=== PATIENT | male | born 1940 | race Caucasian/White ===

== ENCOUNTER 2017-09-27 10:01 | Emergency (ER) | payer MEDICARE ==
[~2017-09-27] VITALS: Ht 167.6 cm; Wt 90.7 kg
--- NOTE | 2017-09-27 10:20 | PHYS DOC ---
Adult General Chief Complaint Chief Complaint: COUGH HPI HPI Patient is a 77 year old female is presents with productive cough for one week with blood-tinged sputum for the past 2 days. Patient also reports fever, sweats , malaise. Denies chest pain and shortness of breath. 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 Denies dizziness lightheadedness headache. No vomiting, diarrhea. No other acute symptoms or complaints. Denies cardiac history. Patient is a nonsmoker. He is accompanied at bedside by his son.[] Review of Systems Review of Systems ROS as per HPI. All other systems were reviewed and found to be within normal limits, except as documented in this note. Allergies Allergies Allergies Coded Allergies Type Severity Reaction Last Updated Verified No Known Drug Allergies 09/27/17 No Physical Exam Physical Exam Constitutional: Well developed, well nourished, generally weak and fatigued appearing.[] HENT: Normocephalic, atraumatic, bilateral external ears normal, oropharynx moist, no oral exudates, nose normal. [] Eyes: PERRLA, EOMI, conjunctiva normal, no discharge. [] Neck: Normal range of motion, no tenderness. [] Cardiovascular:Heart rate regular rhythm, no murmur, negative Homans signs. [] Lungs & Thorax: Patient's nonlabored, coarse breath sounds in bases.[] Abdomen: Bowel sounds normal, soft, no tenderness, no masses, no pulsatile masses. [] Skin: Warm, dry, no erythema, no rash. [] Back: No tenderness, no CVA tenderness. [] Extremities: No tenderness, no cyanosis, no clubbing, ROM intact, no edema. [] Neurologic: Alert and oriented X 3, normal motor function, normal sensory function, no focal deficits noted. [] Psychologic: Affect normal, judgement normal, mood normal. [] Current Patient Data Vital Signs Vital Signs Date Time Temp Pulse Resp B/P (MAP) Pulse Ox O2 Delivery O2 Flow Rate FiO2 09/27/17 12:05 96 19 167/87 (113) 94 Room Air 09/27/17 10:13 98.4 98.4 Lab Values Laboratory Tests Test 09/27/17 10:25 White Blood Count 6.4 x10^3/uL (4.0-11.0) Red Blood Count 5.52 x10^6/uL (4.30-5.70) Hemoglobin 17.0 g/dL (13.0-17.5) Hematocrit 49.3 % (39.0-53.0) Mean Corpuscular Volume 89 fL (79-100) Mean Corpuscular Hemoglobin 31 pg (25-35) Mean Corpuscular Hemoglobin Concent 34 g/dL (31-37) Red Cell Distribution Width 14.0 % (11.5-14.5) Platelet Count 181 x10^3/uL (140-400) Neutrophils (%) (Auto) 63 % (31-73) Lymphocytes (%) (Auto) 29 % (24-48) Monocytes (%) (Auto) 7 % (0-9) Eosinophils (%) (Auto) 1 % (0-3) Basophils (%) (Auto) 1 % (0-3) Neutrophils # (Auto) 4.1 x10^3uL (1.8-7.7) Lymphocytes # (Auto) 1.8 x10^3/uL (1.0-4.8) Monocytes # (Auto) 0.4 x10^3/uL (0.0-1.1) Eosinophils # (Auto) 0.1 x10^3/uL (0.0-0.7) Basophils # (Auto) 0.0 x10^3/uL (0.0-0.2) Prothrombin Time 23.1 SEC (11.7-14.0) H Prothrombin Time INR 2.1 (0.8-1.1) H Sodium Level 141 mmol/L (136-145) Potassium Level 3.8 mmol/L (3.5-5.1) Chloride Level 107 mmol/L (98-107) Carbon Dioxide Level 22 mmol/L (21-32) Anion Gap 12 (6-14) Blood Urea Nitrogen 16 mg/dL (8-26) Creatinine 1.1 mg/dL (0.7-1.3) Estimated GFR (Cockcroft-Gault) 64.9 Glucose Level 121 mg/dL (70-99) H Calcium Level 8.8 mg/dL (8.5-10.1) KU-[id number]-X-Type Natriuretic Peptide 4069 pg/mL (0-449) H Laboratory Tests 09/27/17 10:25 Laboratory Tests 09/27/17 10:25 EKG EKG [EKG:] Radiology/Procedures Radiology/Procedures [Chest X-ray: No definite pulmonary infiltrate per radiology report.] Course & Med Decision Making Course & Med Decision Making Pertinent Labs and Imaging studies reviewed. (See chart for details) [Blood-tinged sputum with cough. No shortness of breath chest wall pain or fever. currently on Coumadin. Symptoms most consistent with bronchitis. Will treat with PCP follow-up. Return precautions reviewed.] Dragon Disclaimer Dragon Disclaimer This electronic medical record was generated, in whole or in part, using a voice recognition dictation system. Departure Departure Impression: Primary Impression: Cough with hemoptysis Additional Impression: Acute bronchitis Referrals: ALE RIOS MD (PCP) Scripts Albuterol Sulfate (PROAIR HFA INHALER) 8.5 Gm Hfa.aer.ad 1 PUFF INH PRN Q6HRS PRN for SHORTNESS OF BREATH, #1 INHALER 0 Refills Prov: ELODIA JUAREZ DO 09/27/17 Doxycycline Monohydrate (DOXYCYCLINE MONOHYDRATE) 100 Mg Capsule 1 CAP PO BID, #20 CAP Prov: ELODIA JUAREZ DO 09/27/17 Problem Qualifiers ELODIA JUAREZ DO Sep 27, 2017 10:20
[2017-09-27 10:49] LABS: CALCIUM 8.8 mg/dL (8.5-10.1); CREATININE 1.1 mg/dL (0.7-1.3); GFR 64.9; POTASSIUM 3.8 mmol/L (3.5-5.1)
--- NOTE | 2017-09-27 10:49 | RAD ---
Chest, 2 views, 09/27/2017: HISTORY: Cough, hemoptysis, pneumonia A right Port-A-Cath extends to the level the atriocaval junction. The heart size is normal. There is calcific plaquing of the aorta. There are scattered streaky parenchymal opacities in both lungs. There is a calcified granuloma in the right base. The posterior costophrenic angles were not completely included on the lateral view. No large pleural effusion is seen. There is bony bridging in the thoracic spine. IMPRESSION: 1. A right Port-A-Cath extends to the atriocaval junction level. 2. Mild streaky scarring and/or atelectasis in both lungs. Electronically signed by: Ivan Welch MD (09/27/2017 10:45 AM) [facility]
[2017-09-27 11:06] LABS: PROTHROMBIN TIME PATIENT 23.1 SEC (11.7-14.0)
[2017-09-27 11:10] LABS: BASO % 1 % (0-3); EOS # 0.1 x10^3/uL (0.0-0.7); EOS % 1 % (0-3); HEMATOCRIT 49.3 % (39.0-53.0); LYMPH # 1.8 x10^3/uL (1.0-4.8); LYMPH % 29 % (24-48); MEAN CORPUSCULAR HEMOGLOBIN 31 pg (25-35); MEAN CORPUSCULAR HGB CONC 34 g/dL (31-37); MEAN CORPUSCULAR VOLUME 89 fL (79-100); MONO # 0.4 x10^3/uL (0.0-1.1); MONO % 7 % (0-9); NEUT # 4.1 x10^3uL (1.8-7.7); NEUT % 63 % (31-73); PLATELET COUNT 181 x10^3/uL (140-400); RED BLOOD COUNT 5.52 x10^6/uL (4.30-5.70); WHITE BLOOD COUNT 6.4 x10^3/uL (4.0-11.0)
--- NOTE | 2017-09-27 11:41 | EKG ---
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
[2017-09-27 12:05] VITALS: BP 167/87
[2017-09-27] MEDS ORDERED: PROAIR HFA8.5 GM INH (12:19)
[2017-09-27] MEDS ORDERED: DOXY100C14 PO (12:19)
== END 2017-09-27 12:57 | disposition home or self-care (01) ==
LOC: ER 10:01
DX: J20.9 Acute bronchitis, unspecified (principal); R04.2 Hemoptysis
CPT/HCPCS: 36415; 71046; 80048; 83880; 85025; 85610; 87040; 93005; 99285-25

== ENCOUNTER 2018-04-19 18:51 | Inpatient (IN) | payer MEDICARE ==
[~2018-04-19] VITALS: Ht 172.7 cm; Wt 91.8 kg
[~2018-04-19 18:51] MED LIST: ALBU2.5V8 INH; CITA10TA4 PO; DILT240C2 PO; DOXY100C14 PO; FURO40TA4 PO; RIVA20TA2 PO
[2018-04-19] MEDS ORDERED: 0.9 % SODIUM CHLORIDE 10 ML DISP.SYRIN. IV PRN (19:45)
--- NOTE | 2018-04-19 19:49 | PHYS DOC ---
Past Medical History Past Medical History: A-Fib, Cancer, CVA, DVT, Hypertension, Stroke, Other Additional Past Medical Histor: BRAIN CANCER Past Surgical History: Other Additional Past Surgical Histo: BRAIN CA SURGERY Smoking: Quit Greater Than 1 Year Alcohol Use: Rarely Drug Use: None Adult General Chief Complaint Chief Complaint: SHORTNESS OF BREATH HPI HPI Patient is a 77-year-old male who presents to the emergency department for evaluation. He states he began experiencing some shortness of breath later this afternoon, along with a cough productive of some yellowish sputum. He states he has felt febrile and sweaty today. He states he has felt "like he had the flu" over the past few days. He denies any chest pain, dizziness or lightheadedness, he has not had any nausea, vomiting, or abdominal pain. He has not had any pleuritic pain. There are no alleviating or exacerbating factors to his symptoms. He does a history of a prior stroke, with atrial fibrillation in his history as well. He is on Xarelto. Review of Systems Review of Systems Constitutional: With fevers and chills, and sweatiness.[] Eyes: Denies change in visual acuity, redness, or eye pain [] HENT: Denies nasal congestion or sore throat [] Respiratory: Reports cough and shortness of breath.[] Cardiovascular: No additional information not addressed in HPI [] GI: Denies abdominal pain, nausea, vomiting, bloody stools or diarrhea [] : Denies dysuria or hematuria [] Musculoskeletal: Denies back pain or joint pain [] Integument: Denies rash or skin lesions [] Neurologic: Denies headache, focal weakness or sensory changes [] Endocrine: Denies polyuria or polydipsia [] All other systems were reviewed and found to be within normal limits, except as documented in this note. Current Medications Current Medications Current Medications Medications (Trade) Dose Ordered Sig/Nichole Start Time Stop Time Status Last Admin Dose Admin Aspirin (Children'S Aspirin) 162 mg 1X ONCE 04/19/18 21:00 04/19/18 21:01 04/19/18 20:50 162 MG Azithromycin 250 ml @ 250 mls/hr 1X ONCE 04/19/18 21:00 04/19/18 21:59 04/19/18 20:52 250 MLS/HR Ceftriaxone Sodium (Rocephin) 1 gm 1X ONCE 04/19/18 20:00 04/19/18 20:01 DC 04/19/18 20:05 1 GM Diltiazem HCl (Cardizem Iv Push) 10 mg 1X ONCE 04/19/18 21:00 04/19/18 21:01 Diltiazem HCl 125 mg/Dextrose 125 ml @ 5 mls/hr CONT PRN 04/19/18 21:00 04/19/18 20:53 125 MLS/HR Sodium Chloride 1,000 ml @ 2,700 mls/hr Q23M 04/19/18 20:00 04/19/18 21:00 04/19/18 19:55 2,700 MLS/HR Sodium Chloride (Normal Saline Flush) 10 ml QSHIFT PRN 04/19/18 19:45 Allergies Allergies Allergies Coded Allergies Type Severity Reaction Last Updated Verified No Known Drug Allergies 09/27/17 No Physical Exam Physical Exam PHYSICAL EXAM: CONSTITUTIONAL: Well developed, well nourished HEAD: normocephalic, atraumatic EENT: PERRL, EOMI. Conjunctivae normal color, sclerae non-icteric; dry mucous membranes. NECK: Supple, non-tender; no meningismus. LUNGS: There are mildly faint scattered rhonchi, without focal rhonchi, wheezes , or rales, breathing even and unlabored. Normal air movement. HEART: Rapid, irregularly irregular rhythm, no murmur CHEST: No deformity; non-tender ABDOMEN: The abdomen is soft, and non-tender, no masses or bruits. EXTREM: Normal ROM; no deformity, no calf tenderness. Normal pulses palpable in all extremities. There is no pedal edema. SKIN: No rash; the skin is warm to touch, with diaphoresis NEURO: Alert; normal speech and cognition; CN's grossly intact; strength grossly intact without focal deficit. BACK: No CVA TTP. Current Patient Data Vital Signs Vital Signs Date Time Temp Pulse Resp B/P (MAP) Pulse Ox O2 Delivery O2 Flow Rate FiO2 04/19/18 20:03 147 18 129/67 (87) 04/19/18 19:31 97.9 94 Room Air 97.9 Lab Values Laboratory Tests Test 04/19/18 19:40 White Blood Count 12.5 x10^3/uL (4.0-11.0) H Red Blood Count 5.58 x10^6/uL (4.30-5.70) Hemoglobin 16.6 g/dL (13.0-17.5) Hematocrit 49.9 % (39.0-53.0) Mean Corpuscular Volume 90 fL (79-100) Mean Corpuscular Hemoglobin 30 pg (25-35) Mean Corpuscular Hemoglobin Concent 33 g/dL (31-37) Red Cell Distribution Width 14.2 % (11.5-14.5) Platelet Count 156 x10^3/uL (140-400) Neutrophils (%) (Auto) 86 % (31-73) H Lymphocytes (%) (Auto) 7 % (24-48) L Monocytes (%) (Auto) 7 % (0-9) Eosinophils (%) (Auto) 0 % (0-3) Basophils (%) (Auto) 0 % (0-3) Neutrophils # (Auto) 10.7 x10^3uL (1.8-7.7) H Lymphocytes # (Auto) 0.9 x10^3/uL (1.0-4.8) L Monocytes # (Auto) 0.9 x10^3/uL (0.0-1.1) Eosinophils # (Auto) 0.0 x10^3/uL (0.0-0.7) Basophils # (Auto) 0.0 x10^3/uL (0.0-0.2) Segmented Neutrophils % 84 % (35-66) H Band Neutrophils % 8 % (0-9) Lymphocytes % 1 % (24-48) L Monocytes % 7 % (0-10) Platelet Estimate Adequate (ADEQUATE) PTT 35 SEC (24-38) Sodium Level 139 mmol/L (136-145) Potassium Level 3.4 mmol/L (3.5-5.1) L Chloride Level 102 mmol/L (98-107) Carbon Dioxide Level 23 mmol/L (21-32) Anion Gap 14 (6-14) Blood Urea Nitrogen 18 mg/dL (8-26) Creatinine 1.2 mg/dL (0.7-1.3) Estimated GFR (Cockcroft-Gault) 58.7 BUN/Creatinine Ratio 15 (6-20) Glucose Level 127 mg/dL (70-99) H Lactic Acid Level 1.8 mmol/L (0.4-2.0) Calcium Level 9.3 mg/dL (8.5-10.1) Magnesium Level 1.7 mg/dL (1.8-2.4) L Total Bilirubin 1.7 mg/dL (0.2-1.0) H Aspartate Amino Transferase (AST) 34 U/L (15-37) Alanine Aminotransferase (ALT) 37 U/L (16-63) Alkaline Phosphatase 121 U/L (46-116) H Troponin I Quantitative 0.399 ng/mL (0.000-0.055) QX-Zmr-Y-Type Natriuretic Peptide 8004 pg/mL (0-449) H Total Protein 7.4 g/dL (6.4-8.2) Albumin 3.7 g/dL (3.4-5.0) Albumin/Globulin Ratio 1.0 (1.0-1.7) Procalcitonin 0.21 ng/mL (0.00-0.10) H Influenza Type A Antigen Negative (NEGATIVE) Influenza Type B Antigen Negative (NEGATIVE) Laboratory Tests 04/19/18 19:40 Laboratory Tests 04/19/18 19:40 EKG EKG [Atrial fibrillation at a rate of 137 bpm with left axis deviation, left anterior fascicular block, nonspecific ST/T changes without acute ischemic changes noted. There is shortness widening noted consistent with the left anterior fascicular block. This block and QRS widening was present on the patient's prior EKG from September 2017.] Radiology/Procedures Radiology/Procedures [] Course & Med Decision Making Course & Med Decision Making Pertinent Labs and Imaging studies reviewed. (See chart for details) [The patient's condition remained stable. He is feeling somewhat better. His heart rate remains elevated. He was initially she was IV fluids, as I was hesitant to give him a rate controlling agent if he was tachycardic in response to sepsis, this could Biomet his blood pressure. However after the patient has been hydrated he still remains tachycardic will be treated with diltiazem. I discussed the case with the patient's PCP, Dr. Godoy, who will admit the patient for further treatment.] Dragon Disclaimer Dragon Disclaimer This electronic medical record was generated, in whole or in part, using a voice recognition dictation system. Departure Departure Impression: Primary Impression: Dyspnea Additional Impressions: Cough Rapid atrial fibrillation Disposition: 09 ADMITTED INPATIENT Admitting Physician: Kapil Godoy Condition: GUARDED Referrals: KAPIL GODOY MD (PCP) Problem Qualifiers KAPIL VERMA MD Apr 19, 2018 19:49
[2018-04-19 19:53] LABS: BASO % 0 % (0-3); EOS % 0 % (0-3); HEMATOCRIT 49.9 % (39.0-53.0); HEMOGLOBIN 16.6 g/dL (13.0-17.5); LYMPH # 0.9 x10^3/uL (1.0-4.8); LYMPH % 7 % (24-48); MEAN CORPUSCULAR HEMOGLOBIN 30 pg (25-35); MEAN CORPUSCULAR HGB CONC 33 g/dL (31-37); MEAN CORPUSCULAR VOLUME 90 fL (79-100); MONO # 0.9 x10^3/uL (0.0-1.1); MONO % 7 % (0-9); NEUT # 10.7 x10^3uL (1.8-7.7); NEUT % 86 % (31-73); PLATELET COUNT 156 x10^3/uL (140-400); RED BLOOD COUNT 5.58 x10^6/uL (4.30-5.70); RED CELL DISTRIBUTION WIDTH 14.2 % (11.5-14.5); WHITE BLOOD COUNT 12.5 x10^3/uL (4.0-11.0)
[2018-04-19] MEDS: IV NORMAL SALINE 1000ML BAG 1,000 ML IV SCH ×3 (19:55→22:00)
[2018-04-19] MEDS ORDERED: cefTRIAXone IV Push 1 GM VIAL. IVP ONE (20:00)
[2018-04-19 20:05] LABS: CALCIUM 9.3 mg/dL (8.5-10.1); CREATININE 1.2 mg/dL (0.7-1.3); GFR 58.7; POTASSIUM 3.4 mmol/L (3.5-5.1)
[2018-04-19 20:20] LABS: ALBUMIN 3.7 g/dL (3.4-5.0); INFLUENZA A PATIENT NEGATIVE (NEGATIVE); INFLUENZA B PATIENT NEGATIVE (NEGATIVE); MAGNESIUM 1.7 mg/dL (1.8-2.4); TOTAL BILIRUBIN 1.7 mg/dL (0.2-1.0); TOTAL PROTEIN 7.4 g/dL (6.4-8.2)
--- NOTE | 2018-04-19 20:41 | RAD ---
AP portable chest 04/19/2018. Reason for exam: Shortness of breath. Comparison is made with a study of 10/13/2017. A Port-A-Cath remains in place. No consolidation is seen, but there is suggestion of some interstitial prominence, and mild edema could be present. There is some blunting of the lateral costophrenic angles, similar to the prior exam. The heart remains mildly enlarged. IMPRESSION: Possible mild interstitial edema. Electronically signed by: Nilson Manley Jr., MD (04/19/2018 8:38 PM) [facility]
[2018-04-19 20:44] LABS: % BANDS 8 % (0-9); % LYMPHS 1 % (24-48); % MONOS 7 % (0-10); % SEGS 84 % (35-66); PLT ESTIMATE ADEQUATE (ADEQUATE)
[2018-04-19] MEDS ORDERED: dilTIAZem IV PUSH 25 MG/5 ML VIAL IVP ONE (21:00)
[2018-04-19] MEDS ORDERED: ASPIRIN CHEWABLE 81 MG TABLET. PO ONE (21:00)
[2018-04-19] MEDS ORDERED: AZITHRMYCN 500MG IVPB FOR OMNI 250 ML IV ONE (21:00)
[2018-04-19] MEDS ORDERED: dilTIAZem INJ 125 MG in IV DEXTROSE 5% 100ML 100 ML IV PRN (21:00)
[2018-04-19 22:02] VITALS: BP 106/70
[2018-04-19 22:30] VITALS: BP 127/76
[2018-04-19 23:00] VITALS: BP 107/62
[2018-04-19 23:30] VITALS: BP 120/73
[2018-04-20] VITALS (19 sets, daily range): BP systolic 98–154; BP diastolic 57–103
[2018-04-20] MEDS ORDERED: ATOR20TA58 PO (03:55)
[2018-04-20] MEDS ORDERED: HYDR50TA6 PO (03:55)
[2018-04-20] MEDS ORDERED: AMLO5TAB10 PO (03:55)
--- NOTE | 2018-04-20 04:00 | NUR ---
I have reviewed the documentation, assessment and/or procedures by nursing associate Noemi Chand and concur with her documentation unless otherwise noted.
[2018-04-20 04:03] LABS: BASO % 0 % (0-3); EOS % 0 % (0-3); HEMATOCRIT 45.8 % (39.0-53.0); HEMOGLOBIN 15.2 g/dL (13.0-17.5); LYMPH # 1.5 x10^3/uL (1.0-4.8); LYMPH % 17 % (24-48); MEAN CORPUSCULAR HEMOGLOBIN 30 pg (25-35); MEAN CORPUSCULAR HGB CONC 33 g/dL (31-37); MEAN CORPUSCULAR VOLUME 90 fL (79-100); MONO # 0.6 x10^3/uL (0.0-1.1); MONO % 7 % (0-9); NEUT # 6.9 x10^3uL (1.8-7.7); NEUT % 76 % (31-73); PLATELET COUNT 132 x10^3/uL (140-400); RED BLOOD COUNT 5.07 x10^6/uL (4.30-5.70); RED CELL DISTRIBUTION WIDTH 14.4 % (11.5-14.5); WHITE BLOOD COUNT 9.1 x10^3/uL (4.0-11.0)
[2018-04-20 05:05] LABS: ALBUMIN 3.1 g/dL (3.4-5.0); CALCIUM 8.2 mg/dL (8.5-10.1); CREATININE 1.1 mg/dL (0.7-1.3); GFR 64.9; POTASSIUM 3.4 mmol/L (3.5-5.1); TOTAL BILIRUBIN 1.3 mg/dL (0.2-1.0); TOTAL PROTEIN 6.1 g/dL (6.4-8.2)
--- NOTE | 2018-04-20 07:20 | EKG ---
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
[2018-04-20] MEDS ORDERED: HEPARIN for IV BOLUS 10,000 UNIT/10 ML VIAL. IV PRN (08:00)
[2018-04-20] MEDS ORDERED: HEPARIN 25,000UTS/500ML PREMIX 500 ML IV PRN (08:00)
--- NOTE | 2018-04-20 08:01 | PDOC1 ---
H & P. HPI: Mr. Meza is 77-year-old male with a past medical history of A. fib, history of CVA, history of DVT on long-term anticoagulation, hypertension, history of HOG CUTTER lymphoma, hyperlipidemia, obesity, who presented to the emergency room yesterday evening for concerns of productive cough with yellow sputum, fatigue, malaise, subjective fever and some shortness of breath that started yesterday. Of note he was seen in the office on 04/17/18 and was feeling well that time. He denies any chest pain, lightheadedness, dizziness, nausea, vomiting, abdominal pain. Chest x-ray was remarkable for possible interstitial fluid but no obvious consolidation. Labs are remarkable for mild leukocytosis with left shift, BNP of 8004, elevated pro-calcitonin, elevated troponin at 0.39 initially which increased to 2.7 overnight and 3.7 this AM. Of note, cardiology had not been consulted and I was not notified of this lab finding until I saw it this morning. EKG done in the emergency room was negative for ST changes and significant for A. fib with RVR, but no further EKGs have been obtained as of yet. ROS: Constitutional: Admits fatigue. Denies fever HEENT: Denies sore throat, vision changes Cardio: Denies chest pain, syncope, palpitations, edema Pulmonary: Admits shortness of breath, cough GI: Denies nausea, vomiting, diarrhea, constipation Skin: Denies new lesions Neuro: Denies weakness, paresthesias PMH: As above. FAMILY HX: Father with emphysema and hypertension. Mother with cancer of unknown primary source. SOCIAL HX: Non smoker. Denies significant alcohol or illicit drug use. SURGICAL HX: Cranial resection for HOG CUTTER lymphoma in 2013. MEDS: Reviewed and reconciled ALLERGIES: Reviewed PE: Alert, oriented, anxious, uncomfortable, diaphoretic EOMI, sclera non-icteric Neck supple Irregularly irregular, rate controlled Crackles throughout without focal findings, no wheezes No edema, cyanosis. Normal capillary refill. ASSESSMENT & PLAN: NSTEMI A. fib with RVR, now rate controlled Mild pulmonary edema Possible community acquired pneumonia, with elevated procalcitonin History of CVA History of DVT on long-term anticoagulation Hypertension History of HOG CUTTER lymphoma Hyperlipidemia Obesity Discussed lab findings with pt, pt is declined a cardiac cath at this point. Lasix 40mg IV now, repeat pending improvement Ativan PRN for anxiety/agitation Repeat EKG was ordered and is still pending Cards has been consulted Hep gtt NPO, holding home meds Hold abx for now Discussed the importance of cardiac cath, will follow pt to see if he reconsiders. GEMMA SHARMA MD Apr 20, 2018 08:01
[2018-04-20] MEDS ORDERED: ANTI-COAG MONITOR BY PHARMACY. MC PRN (08:30)
--- NOTE | 2018-04-20 08:59 | PDOC2 ---
KATELYNN MURRIETA CREW MANAGER 04/20/18 0859: CARDIAC CONSULT DATE OF CONSULT Date of Consult DATE: 04/20/18 TIME: 08:49 REASON FOR CONSULT Reason for Consult: AFIB with RVR Elevated trop REFERRING PHYSICIAN Referring Physician: Dr. Jolly SOURCE Source: Chart review, Patient HISTORY OF PRESENT ILLNESS HISTORY OF PRESENT ILLNESS This is a 77 yo male who presented secondary to shortness of breath. Patient reports shortness of breath began Friday morning. Has has cough productive of green sputum since Friday. SOA has been constant. Associated with orthopnea. Had episode of nausea/vomiting x1 Friday afternoon. Due to worsening dyspnea, patient decided to come to the ED for further evaluation and treatment. Patient denies and chest pain, pressure, or tightness. No left arm pain/tingling/ numbness. No dizziness, palpitations, or LE edema. Noted to be in AFIB with RVR upon arrival to ED. Trop also elevated. Was given Cardizem bolus followed by Cardizem gtt. CXR with pulmonary edema. Patient presently anxious, dyspneic, and diaphoretic. Discussed findings of MT and concerns for ASC and need for cardiac catheterization. Dr. Jolly also at bedside during this discussion. Patient does not want to proceed with cardiac catheterization at this time. Would like more time to think about it. PAST MEDICAL HISTORY Cardiovascular: CAD, Hyperlipidemia Pulmonary: No pertinent hx CENTRAL NERVOUS SYSTEM: CVA GI: GERD Heme/Onc: Cancer (brain s/p chemotherapy ), Other (DVT) Hepatobiliary: No pertinent hx Psych: No pertinent hx Musculoskeletal: Osteoarthritis Rheumatologic: No pertinent hx Infectious disease: No pertinent hx ENT: No pertinent hx Renal/: No pertinent hx Endocrine: No pertinent hx Dermatology: No pertinent hx PAST SURGICAL HISTORY Past Surgical History: Other (brain surgery secondary to CA) FAMILY HISTORY Family History: Hypertension SOCIAL HISTORY Smoke: No ALCOHOL: none Drugs: None Lives: Alone CURRENT MEDICATIONS CURRENT MEDICATIONS Current Medications Medications (Trade) Dose Ordered Sig/Nichole Route PRN Reason Start Time Stop Time Status Last Admin Dose Admin Sodium Chloride 1,000 ml @ 2,700 mls/hr Q23M IV 04/19/18 20:00 04/19/18 21:00 DC 04/19/18 19:55 Ceftriaxone Sodium (Rocephin) 1 gm 1X ONCE IVP 04/19/18 20:00 04/19/18 20:01 DC 04/19/18 20:05 Azithromycin 250 ml @ 250 mls/hr 1X ONCE IV 04/19/18 21:00 04/19/18 21:59 DC 04/19/18 20:52 Aspirin (Children'S Aspirin) 162 mg 1X ONCE PO 04/19/18 21:00 04/19/18 21:01 DC 04/19/18 20:50 Diltiazem HCl (Cardizem Iv Push) 10 mg 1X ONCE IVP 04/19/18 21:00 04/19/18 21:01 DC 04/19/18 21:02 Diltiazem HCl 125 mg/Dextrose 125 ml @ 5 mls/hr CONT PRN IV SEE I/O RECORD 04/19/18 21:00 04/19/18 20:53 Heparin Sodium/ Dextrose 500 ml @ 20 mls/hr CONT PRN IV SEE I/O RECORD 04/20/18 08:00 04/20/18 08:38 ALLERGIES ALLERGIES: Coded Allergies: No Known Drug Allergies (Unverified , 09/27/17) ROS Review of System 14 point ROS conducted with pertinent positives noted above in HPI. PHYSICAL EXAM General: Alert, Oriented X3, Cooperative, mild distress HEENT: Atraumatic, Mucous membr. moist/pink Lungs: Other (crackles throughout ) Heart: Regular rate, Other (presently SR with PACs- having intermittent cursts of AFIB) Abdomen: Soft, No tenderness Extremities: Other (trace bilateral LE edema ) Skin: No significant lesion Neuro: Normal speech, Sensation intact Psych/Mental Status: Mental status NL, Other (anxious ) MUSCULOSKELETAL: Osteoarthritic changes both hands VITALS VITALS Vital Signs Date Time Temp Pulse Resp B/P (MAP) Pulse Ox O2 Delivery O2 Flow Rate FiO2 04/20/18 07:30 98.0 88 28 154/96 (115) 90 Room Air 98.0 LABS Lab: Laboratory Tests Test 04/19/18 19:40 04/19/18 23:45 04/20/18 02:55 White Blood Count 12.5 x10^3/uL (4.0-11.0) 9.1 x10^3/uL (4.0-11.0) Red Blood Count 5.58 x10^6/uL (4.30-5.70) 5.07 x10^6/uL (4.30-5.70) Hemoglobin 16.6 g/dL (13.0-17.5) 15.2 g/dL (13.0-17.5) Hematocrit 49.9 % (39.0-53.0) 45.8 % (39.0-53.0) Mean Corpuscular Volume 90 fL (79-100) 90 fL (79-100) Mean Corpuscular Hemoglobin 30 pg (25-35) 30 pg (25-35) Mean Corpuscular Hemoglobin Concent 33 g/dL (31-37) 33 g/dL (31-37) Red Cell Distribution Width 14.2 % (11.5-14.5) 14.4 % (11.5-14.5) Platelet Count 156 x10^3/uL (140-400) 132 x10^3/uL (140-400) Neutrophils (%) (Auto) 86 % (31-73) 76 % (31-73) Lymphocytes (%) (Auto) 7 % (24-48) 17 % (24-48) Monocytes (%) (Auto) 7 % (0-9) 7 % (0-9) Eosinophils (%) (Auto) 0 % (0-3) 0 % (0-3) Basophils (%) (Auto) 0 % (0-3) 0 % (0-3) Neutrophils # (Auto) 10.7 x10^3uL (1.8-7.7) 6.9 x10^3uL (1.8-7.7) Lymphocytes # (Auto) 0.9 x10^3/uL (1.0-4.8) 1.5 x10^3/uL (1.0-4.8) Monocytes # (Auto) 0.9 x10^3/uL (0.0-1.1) 0.6 x10^3/uL (0.0-1.1) Eosinophils # (Auto) 0.0 x10^3/uL (0.0-0.7) 0.0 x10^3/uL (0.0-0.7) Basophils # (Auto) 0.0 x10^3/uL (0.0-0.2) 0.0 x10^3/uL (0.0-0.2) Segmented Neutrophils % 84 % (35-66) Band Neutrophils % 8 % (0-9) Lymphocytes % 1 % (24-48) Monocytes % 7 % (0-10) Platelet Estimate Adequate (ADEQUATE) Activated Partial Thromboplast Time 35 SEC (24-38) Sodium Level 139 mmol/L (136-145) 141 mmol/L (136-145) Potassium Level 3.4 mmol/L (3.5-5.1) 3.4 mmol/L (3.5-5.1) Chloride Level 102 mmol/L (98-107) 104 mmol/L (98-107) Carbon Dioxide Level 23 mmol/L (21-32) 22 mmol/L (21-32) Anion Gap 14 (6-14) 15 (6-14) Blood Urea Nitrogen 18 mg/dL (8-26) 17 mg/dL (8-26) Creatinine 1.2 mg/dL (0.7-1.3) 1.1 mg/dL (0.7-1.3) Estimated GFR (Cockcroft-Gault) 58.7 64.9 BUN/Creatinine Ratio 15 (6-20) 15 (6-20) Glucose Level 127 mg/dL (70-99) 100 mg/dL (70-99) Lactic Acid Level 1.8 mmol/L (0.4-2.0) Calcium Level 9.3 mg/dL (8.5-10.1) 8.2 mg/dL (8.5-10.1) Magnesium Level 1.7 mg/dL (1.8-2.4) Total Bilirubin 1.7 mg/dL (0.2-1.0) 1.3 mg/dL (0.2-1.0) Aspartate Amino Transf (AST/SGOT) 34 U/L (15-37) 39 U/L (15-37) Alanine Aminotransferase (ALT/SGPT) 37 U/L (16-63) 32 U/L (16-63) Alkaline Phosphatase 121 U/L (46-116) 102 U/L (46-116) Troponin I Quantitative 0.399 ng/mL (0.000-0.055) 0.878 ng/mL (0.000-0.055) 2.774 ng/mL (0.000-0.055) SF-Zzm-I-Type Natriuretic Peptide 8004 pg/mL (0-449) Total Protein 7.4 g/dL (6.4-8.2) 6.1 g/dL (6.4-8.2) Albumin 3.7 g/dL (3.4-5.0) 3.1 g/dL (3.4-5.0) Albumin/Globulin Ratio 1.0 (1.0-1.7) 1.0 (1.0-1.7) Procalcitonin 0.21 ng/mL (0.00-0.10) Influenza Type A Antigen Negative (NEGATIVE) Influenza Type B Antigen Negative (NEGATIVE) ECHOCARDIOGRAM ECHOCARDIOGRAM <Conclusion> Left ventricle systolic function is low normal. The Ejection Fraction is 50%. Transmitral Doppler flow pattern is Grade I-abnormal relaxation pattern. Trace tricuspid regurgitation. There is no evidence of significant pericardial effusion. Injection of bubbles documented no interatrial shunt. DATE: 10/14/17 1003 ASSESSMENT/PLAN ASSESSMENT/PLAN 1. AFIB with RVR; rate controlled on Cardizem gtt 2. NSTEMI; highest trop 2.774 3. Acute on chronic diastolic HF; LVEF 50% (09/2017) as noted above. 4. Hypertension; controlled on Cardizem 5. Hyperlipidemia; statin 6. Hypokalemia 7. Hypomagnesemia 8. H/o DVT on Xarelto; last dose Friday 9. H/o CVA Recommendations Lasix IV x1 now Replace K, Mg Check lipids, TSH Trend trop to note peak Repeat EKG Start oral metoprolol for rate control Titrate off Cardizem gtt. Obtain limited echo to assess LV systolic function PT/INR Heparin gtt per CV protocol. Hold Xarelto for now Due to presentation and risk factors in the setting of NSTEMI, recommend cardiac cath with possible PCI. R/b/a discussed with patient and he is apprehensive. Would like time to further discuss SUAD TALBERT MD 04/20/18 5409: CARDIAC CONSULT ASSESSMENT/PLAN ASSESSMENT/PLAN Patient seen and examined. Agree with ASP NET MVC DEVELOPER's assessment and plan. Atrial fibrillation rate better controlled with Cardizem infusion. Agree with cardiac catheterization to evaluate patient's acute non-STEMI. 2-D echo showed LVEF 15-20% possibly ischemic cardiomyopathy. Continue diuresis for acute systolic heart failure. We will consider outpatient cardioversion after 3-4 weeks of therapeutic anticoagulation. Thank you for your consultation. KATELYNN MURRIETA APRN Apr 20, 2018 08:59 SUAD TALBERT MD Apr 20, 2018 16:29
[2018-04-20] MEDS ORDERED: hydroCHLOROthiazide 25 MG TABLET PO SCH (09:00)
[2018-04-20] MEDS ORDERED: CITALOPRAM 10 MG TABLET. PO SCH (09:00)
[2018-04-20] MEDS ORDERED: POTASSIUM CHLORIDE 20 MEQ TABLET.ER. PO ONE (09:00)
[2018-04-20] MEDS ORDERED: FUROSEMIDE 40 MG/4 ML VIAL. IVP ONE (09:15)
[2018-04-20] MEDS ORDERED: MAGNESIUM SULFATE 2GM 50 ML IV ONE (09:30)
[2018-04-20] MEDS: METOPROLOL TART IMMED RELEASE 50 MG TABLET. PO SCH ×2 (09:53→21:17)
[2018-04-20] MEDS: ASPIRIN ENTERIC COATED 81 MG TABLET.DR. PO SCH (09:54)
[2018-04-20 11:39] LABS: PROTHROMBIN TIME PATIENT 15.9 SEC (11.7-14.0)
--- NOTE | 2018-04-20 12:24 | NUR ---
SS following for discharge planning. SS reviewed pt chart. Pt is from home. No discharge needs noted at this time. SS will continue to follow for pending discharge needs.
[2018-04-20] MEDS ORDERED: LIDOCAINE 1% PF 2 ML VIAL. ONE (13:38)
[2018-04-20] MEDS ORDERED: IODIXANOL 320 MG/ML 100 ML VIAL. ONE ×3 (13:41→15:24)
--- NOTE | 2018-04-20 13:58 | CARD ---
MR#: [id number] Date of Study: 04/20/2018 Ordering Physician: KATELYNN MURRIETA, Referring Physician: Dat BARFIELD: Krystal King RDCS APPROVED REPORT EXAM: LIMITED Two-dimensional and M-mode echocardiogram. Other Information Quality : GoodHR: 60bpm Rhythm : NSR INDICATION Arrhythmia 2D DIMENSIONS Left Atrium(2D)4.8 (1.6-4.0cm)IVSd1.4 (0.7-1.1cm) Aortic Root(2D)3.6 (2.0-3.7cm)LVDd5.9 (3.9-5.9cm) PWd1.1 (0.7-1.1cm)LVDs5.5 (2.5-4.0cm) FS (%) 7.4 %SV27.9 ml LVEF(%)16.1 (>50%) Mitral Valve MV E Peak Gr.45mmHgMV E Mean Gr.2mmHg Tricuspid Valve TR P. [id number] [id number] TR Peak Gr.[id number] LEFT VENTRICLE The Left Ventricle is borderline dilated. Proximal septal thickening is noted. The left ventricular s ystolic function is severely impaired. The Ejection Fraction is 15-20%. There is global hypokinesis o f the left ventricle. RIGHT VENTRICLE The right ventricle is normal size. There is normal right ventricular wall thickness. Systolic functi on is moderately reduced. ATRIA The left atrium is moderately dilated. The right atrium is mildly dilated. The interatrial septum is intact with no evidence for an atrial septal defect or patent foramen ovale as noted on 2-D or Dopple r imaging. AORTIC VALVE The aortic valve is calcified and displays decreased opening. MITRAL VALVE Mitral annular calcification is mild to moderate. There is no evidence of mitral valve prolapse. Ther e is no mitral valve stenosis. Doppler and Color-flow revealed moderate mitral regurgitation. TRICUSPID VALVE The tricuspid valve is normal in structure and function. Doppler and Color Flow revealed mild to mode rate tricuspid regurgitation. The PA pressure was estimated at 42 mmHg. There is no tricuspid valve p rolapse or vegetation. There is no tricuspid valve stenosis. GREAT VESSELS The aortic root is normal in size. The IVC is normal in size and collapses <50% with inspiration. PERICARDIAL EFFUSION There is no evidence of significant pericardial effusion. Critical Notification Critical Value: No <Conclusion> The left ventricular systolic function is severely impaired. The Ejection Fraction is 15-20%. The left atrium is moderately dilated. Moderate mitral regurgitation. Mild to moderate tricuspid regurgitation. The PA pressure was estimated at 42 mmHg. There is no evidence of significant pericardial effusion. Signed by : Chinmay Botello, Electronically Approved : 04/20/2018 13:58:23
[2018-04-20] MEDS ORDERED: MIDAZOLAM HCL/PF 2 MG/2 ML VIAL. ONE (14:22)
[2018-04-20] MEDS ORDERED: fentaNYL PF VIAL 100 MCG/2 ML VIAL ONE (14:22)
[2018-04-20] MEDS ORDERED: VERAPAMIL 5 MG/2 ML VIAL. ONE (14:22)
[2018-04-20] MEDS ORDERED: HEPARIN for IV BOLUS 10,000 UNIT/10 ML VIAL. ONE (14:22)
[2018-04-20] MEDS ORDERED: NITROGLYCERIN 200 MCG/2 ML SYRINGE FOR CATH/VASC LAB. ONE ×2 (14:23→16:28)
[2018-04-20] MEDS ORDERED: BIVALIRUDIN 250 MG VIAL. IV ONE ×2 (14:42→15:15)
[2018-04-20] MEDS ORDERED: fentaNYL PF VIAL 100 MCG/2 ML VIAL IV ONE (15:15)
[2018-04-20] MEDS ORDERED: VERAPAMIL 5 MG/2 ML VIAL. IART ONE (15:15)
[2018-04-20] MEDS ORDERED: NITROGLYCERIN 200 MCG/2 ML SYRINGE FOR CATH/VASC LAB. IART ONE (15:15)
[2018-04-20] MEDS ORDERED: CONTRAST GIVEN. MC PRN (15:15)
[2018-04-20] MEDS ORDERED: HEPARIN for IV BOLUS 10,000 UNIT/10 ML VIAL. IART ONE (15:15)
[2018-04-20] MEDS ORDERED: IODIXANOL 320 MG/ML 100 ML VIAL. IART ONE (15:15)
[2018-04-20] MEDS ORDERED: MIDAZOLAM HCL/PF 2 MG/2 ML VIAL. IV ONE (15:15)
[2018-04-20] MEDS ORDERED: LIDOCAINE 1% PF 2 ML VIAL. INJ ONE (15:15)
[2018-04-20] MEDS ORDERED: CLOPIDOGREL BISULFATE 75 MG TABLET PO ONE (15:30)
[2018-04-20] MEDS ORDERED: NITROGLYCERIN 200 MCG/2 ML SYRINGE FOR CATH/VASC LAB. ICAR ONE (15:30)
--- NOTE | 2018-04-20 15:37 | PDOC ---
MODERATE SEDATION ASSESSMENT RISKS/ALTERNATIVES Risks/Alternatives Risks and alternatives of this type of sedation and procedure discussed with: RISK/ALTERNATIVES: Patient H & P ON CHART H & P H & P on chart and reviewed for co-morbid conditions and appropriate labs. H&P ON CHART: Yes STATUS PREG STATUS ASSESSED: N/A MEDS/ALLERGIES REVIEWED Meds/Allergies Reviewed Medications and Allergies including time and route of recently administered narcotics and sedatives. MEDS/ALLERGIES REVIEWED: Yes ASA RATING ASA RATING: III AIRWAY ASSESSMENT Airway Assessment Airway patency, oral function limitations, presence of caps, crowns, dentures, partials, and ability to extend neck assessed. AIRWAY ASSESSMENT: Yes MALLAMPATI SCORE MALLAMPATI SCORE: II PRE-SEDATION ASSESSMENT PRE-SEDATION ASSESSMENT: Yes SUAD TALBERT MD Apr 20, 2018 15:37
[2018-04-20] MEDS ORDERED: ACETAMINOPHEN 325 MG TABLET. PO PRN (15:45)
[2018-04-20] MEDS ORDERED: NITROGLYCERIN SUBLINGUAL 0.4 MG BOTTLE OF 25. SL PRN (15:45)
--- NOTE | 2018-04-20 16:24 | CARD ---
MR#: [id number] Date of Study: 04/20/2018 Ordering Physician: SUAD BOTELLO, Referring Physician: ALE RIOS Tech: RT Sirena (R) APPROVED REPORT Technologist: RT Sirena (R) Nurse: Ines Ross R.N. Procedure(s) performed: 1. Left heart catheterization and selective coronary angiography via right t ransradial approach 2. Successful complex PCI/drug eluting stents placement to the right coronary artery, left anterior descending artery and ramus intermedius artery. Moderate sedation: 74 min INDICATION The indication(s) include : Acute non-ST elevation myocardial infarction and acute systolic heart leticia lure. [facility] Clinical Frailty Scale [facility] Clinical Frailty Scale: Mildly Frail Heart Failure Heart Failure: Yes If Yes, Newly Diagnosed: Yes If Yes, HF Type: Systolic If Yes, NYHA Class: Class II PROCEDURE NARRATIVE After explaining the risks, benefits and alternative options, informed consent was obtained from tami ent. Patient was brought to the cardiac Manager Programs and right wrist was prepped and draped in the usual fashion after confirming a positive modified Ken's test. Arterial access was obtained in the righ t radial artery and a 6 [place]ian sheath was inserted. 6 [place] Casey catheter was used to perform deric ective angiography of the left and right coronary arteries. LVEDP and transaortic gradients remeasure d. Left ventriculography was not performed due to availability of recent 2-D echocardiogram. The foll owing findings were noted. FINDINGS 1. Hemodynamics: Left ventricular end-diastolic pressure of 24 mmHg. No pullback gradient across th e aortic valve. 2. Coronary angiography: a. The left main coronary artery arose from the left sinus of Valsalva, gave rise to the left anteri or descending, ramus intermedius and left circumflex arteries and did not show any significant stenos is. b. The left anterior descending artery showed 80% stenosis involving the very proximal segment and 8 0% tandem stenoses in the midsegment. c. The left circumflex artery showed 30% stenosis in the proximal segment. d. The ramus intermedius artery was a medium caliber vessel that showed 90% stenosis in the proximal to midsegment. e. The right coronary artery was a large and dominant vessel arising from the right sinus of Valsalv a that showed 90-95% stenosis involving the proximal to midsegment. INTERVENTION The right coronary artery was engaged with a 6 [place]ian JR4 guide catheter and the stenosis in the prox imal to midsegment was crossed with a 0.014 inch Asahi Pro water guidewire. This was predilated with a 3.0 x 15 mm euphora balloon following which this was successfully treated with a 3.0 x 18 mm resolu te juan luis drug-eluting stent. Follow-up angiography showed resolution of the stenosis to 0% with ZAKIA-3 distal flow. Subsequently, the left main coronary artery was engaged with a 6 [place]ian XB 3.5 guide ca theter and the stenoses in the proximal and mid segments of the left anterior descending artery were crossed with the same Asahi Pro water guidewire. These with predilated with the 3.0 x 15 mm balloon f ollowing which the long lesion was treated successfully with overlapping 2.5 x 15, 3.0 x 38 and 3.5 x 15 mm resolute juan luis drug-eluting stents. Follow-up angiography showed resolution of the stenoses to 0% with ZAKIA-3 distal flow. Finally, the stenosis in the ramus intermedius artery was crossed with th e same guidewire, predilated with the 2.5 x 15 mm balloon and successfully treated with a 2.5 x 15 mm resolute juan luis drug-eluting stent. Final angiography showed resolution of the stenosis to 0% with CHARISSE I-3 distal flow. Patient tolerated the procedure well. Hemostasis was achieved using TR band. There w ere no immediate complications. Conclusion 1. Severe three-vessel coronary artery disease involving right coronary artery, left anterior descen ding artery and a ramus intermedius artery. The left circumflex artery did not show any critical lesi ons. 2. Successful PCI/drug eluting stents placement to the left anterior descending, ramus intermedius a nd right coronary arteries. Recommendations 1. Aspirin 81 mg daily (low dose since patient is on triple therapy) 2. Plavix 75 mg daily for preferably one year 3. Aggressive cardiovascular risk factor modification 4. Optimization of medical therapy for severe ischemic cardiomyopathy with EF 15-20% and repeat 2-D echo in 3 months to evaluate the need for AICD implantation. Signed by : Suad Botello, Electronically Approved : 04/20/2018 16:24:23
[2018-04-20] MEDS: IV 1/2 NORMAL SALINE 1,000 ML IV SCH (16:25)
[2018-04-20] MEDS ORDERED: ONDANSETRON PF 4 MG/2 ML VIAL. IV PRN (16:45)
[2018-04-20] MEDS ORDERED: NON FORMULARY ITEM (Rivaroxaban (Xarelto) 20 MG) PO SCH (21:00)
[2018-04-20] MEDS ORDERED: ATORVASTATIN CALCIUM 20 MG TABLET PO SCH (21:00)
[2018-04-21] VITALS (7 sets, daily range): BP systolic 88–124; BP diastolic 52–85
[2018-04-21 03:29] LABS: HEMATOCRIT 47.4 % (39.0-53.0); HEMOGLOBIN 15.9 g/dL (13.0-17.5); RED BLOOD COUNT 5.25 x10^6/uL (4.30-5.70); RED CELL DISTRIBUTION WIDTH 14.7 % (11.5-14.5); WHITE BLOOD COUNT 8.8 x10^3/uL (4.0-11.0)
[2018-04-21 03:43] LABS: CALCIUM 8.6 mg/dL (8.5-10.1); CREATININE 1.5 mg/dL (0.7-1.3); GFR 45.4; POTASSIUM 3.7 mmol/L (3.5-5.1)
[2018-04-21] MEDS: IV 1/2 NORMAL SALINE 1,000 ML IV SCH ×2 (04:58→17:28)
[2018-04-21] MEDS ORDERED: ASPIRIN ENTERIC COATED 81 MG TABLET.DR. PO SCH (08:00)
--- NOTE | 2018-04-21 08:10 | PDOC ---
SUBJECTIVE Subjective Doing better this AM. Denies pain, shortness of breath. OBJECTIVE Objective Reviewed. Cath Report: 1. Severe three-vessel coronary artery disease involving right coronary artery , left anterior descending artery and a ramus intermedius artery. The left circumflex artery did not show any critical lesions. 2. Successful PCI/drug eluting stents placement to the left anterior descending , ramus intermedius and right coronary arteries. Recommendations 1. Aspirin 81 mg daily (low dose since patient is on triple therapy) 2. Plavix 75 mg daily for preferably one year 3. Aggressive cardiovascular risk factor modification 4. Optimization of medical therapy for severe ischemic cardiomyopathy with EF 15-20% and repeat 2-D echo in 3 months to evaluate the need for AICD implantation. Vital Signs Vital Signs Date Time Temp Pulse Resp B/P (MAP) Pulse Ox O2 Delivery O2 Flow Rate FiO2 04/21/18 02:28 97.6 91 107/64 (78) 92 Nasal Cannula 4.0 97.6 04/20/18 22:06 97.6 82 98/57 (71) 96 Nasal Cannula 6.0 97.6 04/20/18 21:17 77 110/70 04/20/18 20:00 Nasal Cannula 6.0 04/20/18 19:16 97.5 77 22 110/70 (83) 94 Nasal Cannula 6.0 97.5 04/20/18 19:00 77 91 Nasal Cannula 6.0 04/20/18 18:00 76 91 Nasal Cannula 6.0 04/20/18 17:30 72 91 Nasal Cannula 6.0 04/20/18 17:00 66 91 Nasal Cannula 6.0 04/20/18 16:45 66 91 Nasal Cannula 6.0 04/20/18 16:30 74 91 Nasal Cannula 6.0 04/20/18 16:20 91 Nasal Cannula 6.0 04/20/18 16:15 68 89 Nasal Cannula 6.0 04/20/18 16:10 97.4 69 32 104/66 (79) 89 Nasal Cannula 4.0 97.4 04/20/18 15:55 67 28 86 Nasal Cannula 4.0 04/20/18 15:49 67 04/20/18 15:47 28 86 NonRebreather Mask 10.0 04/20/18 15:00 Nasal Cannula 2.0 04/20/18 11:00 97.9 81 32 105/69 (81) 89 Nasal Cannula 2.0 97.9 04/20/18 09:53 106 135/82 04/20/18 09:15 96.1 44 96.1 I & O Intake and Output 04/21/18 07:00 Intake Total 1295 ml Output Total 695 ml Balance 600 ml Intake Oral 320 ml IV Total 975 ml Output Urine Total 695 ml PHYSICAL EXAM Physical Exam Alert, oriented, no acute distress EOMI, sclera non-icteric Neck supple Regular rate, rhythm Crackles in bases bilaterally, improved from yesterday No edema, cyanosis. Normal capillary refill. ASSESSMENT/PLAN Assessment/Plan NSTEMI Severe 3 vessel CAD s/p stent x 3 in RCA, LAD, ramus intermedius Severe ischemic heart failure with decreased EF 15-20% A. 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 Hypertension History of ELECTRICAL INTEGRATOR lymphoma Hyperlipidemia Obesity ASA, Plavix for stents Cards plans to repeat Echo in 3 months to eval need for AICD Repeat Lasix 40mg PO x1 Resume Xarelto when OK with Cards PT/OT eval when ok with Cards COMMENT Lab Laboratory Tests Test 04/20/18 08:25 04/20/18 10:50 04/21/18 03:05 Magnesium Level 1.8 mg/dL (1.8-2.4) Troponin I Quantitative 3.873 ng/mL (0.000-0.055) 3.132 ng/mL (0.000-0.055) Triglycerides Level 70 mg/dL (0-150) Cholesterol Level 134 mg/dL (0-200) LDL Cholesterol, Calculated 76 mg/dL (0-100) VLDL Cholesterol, Calculated 14 mg/dL (0-40) Non-HDL Cholesterol Calculated 90 mg/dL (0-129) HDL Cholesterol 44 mg/dL (40-60) Cholesterol/HDL Ratio 3.0 Thyroid Stimulating Hormone (TSH) 1.149 uIU/mL (0.358-3.74) Prothrombin Time 15.9 SEC (11.7-14.0) Prothromb Time International Ratio 1.3 (0.8-1.1) Potassium Level 3.5 mmol/L (3.5-5.1) 3.7 mmol/L (3.5-5.1) White Blood Count 8.8 x10^3/uL (4.0-11.0) Red Blood Count 5.25 x10^6/uL (4.30-5.70) Hemoglobin 15.9 g/dL (13.0-17.5) Hematocrit 47.4 % (39.0-53.0) Mean Corpuscular Volume 90 fL (79-100) Mean Corpuscular Hemoglobin 30 pg (25-35) Mean Corpuscular Hemoglobin Concent 34 g/dL (31-37) Red Cell Distribution Width 14.7 % (11.5-14.5) Platelet Count 158 x10^3/uL (140-400) Sodium Level 141 mmol/L (136-145) Chloride Level 102 mmol/L (98-107) Carbon Dioxide Level 23 mmol/L (21-32) Anion Gap 16 (6-14) Blood Urea Nitrogen 28 mg/dL (8-26) Creatinine 1.5 mg/dL (0.7-1.3) Estimated GFR (Cockcroft-Gault) 45.4 Glucose Level 111 mg/dL (70-99) Calcium Level 8.6 mg/dL (8.5-10.1) GEMMA SHARMA MD Apr 21, 2018 08:10
[2018-04-21] MEDS: ASPIRIN ENTERIC COATED 81 MG TABLET.DR. PO SCH (08:23)
[2018-04-21] MEDS: CLOPIDOGREL BISULFATE 75 MG TABLET PO SCH (08:23)
[2018-04-21] MEDS: METOPROLOL TART IMMED RELEASE 50 MG TABLET. PO SCH ×2 (08:25→20:57)
[2018-04-21] MEDS ORDERED: LISINOPRIL 5 MG TABLET. PO SCH (09:00)
[2018-04-21] MEDS ORDERED: FUROSEMIDE 40 MG TABLET. PO ONE (09:30)
--- NOTE | 2018-04-21 12:56 | NUR ---
SS following up with discharge planning. PT/OT ordered. SS will await PT/OT evaluations and recommendations and will proceed accordingly with discharge planning.
--- NOTE | 2018-04-21 13:57 | PDOC ---
EBONY LEE TIRE STRIPPER 04/21/18 1357: CARDIO Progress Notes Date and Time Date of Service 04/21/2018 Time of Evaluation 1330 Subjective Subjective: No Chest Pain, No shortness of breath, No Palpitations Vitals Vitals Vital Signs Date Time Temp Pulse Resp B/P (MAP) Pulse Ox O2 Delivery O2 Flow Rate FiO2 04/21/18 11:00 98.0 71 20 92/63 (73) 92 Nasal Cannula 3.0 98.0 Weight Weight [ ] Input and Output Intake and Output Intake and Output 04/21/18 07:00 Intake Total 1295 ml Output Total 695 ml Balance 600 ml Intake Oral 320 ml IV Total 975 ml Output Urine Total 695 ml Laboratory Labs Laboratory Tests Test 04/21/18 03:05 White Blood Count 8.8 x10^3/uL (4.0-11.0) Red Blood Count 5.25 x10^6/uL (4.30-5.70) Hemoglobin 15.9 g/dL (13.0-17.5) Hematocrit 47.4 % (39.0-53.0) Mean Corpuscular Volume 90 fL (79-100) Mean Corpuscular Hemoglobin 30 pg (25-35) Mean Corpuscular Hemoglobin Concent 34 g/dL (31-37) Red Cell Distribution Width 14.7 % (11.5-14.5) Platelet Count 158 x10^3/uL (140-400) Sodium Level 141 mmol/L (136-145) Potassium Level 3.7 mmol/L (3.5-5.1) Chloride Level 102 mmol/L (98-107) Carbon Dioxide Level 23 mmol/L (21-32) Anion Gap 16 (6-14) Blood Urea Nitrogen 28 mg/dL (8-26) Creatinine 1.5 mg/dL (0.7-1.3) Estimated GFR (Cockcroft-Gault) 45.4 Glucose Level 111 mg/dL (70-99) Calcium Level 8.6 mg/dL (8.5-10.1) Microbiology Micro Microbiology 04/19/18 Blood Culture - Preliminary, Resulted NO GROWTH AFTER 1 DAY Physical Exam HEENT: Neck Supple W Full Motion Chest: Symmetric LUNGS: Other (left basilar crackles) Heart: S1S2, RRR (SR) Abdomen: Soft N/T Extremities: No Edema, No Calf Tenderness Neurology: alert, oriented, follow commands Other Exams right wrist arteriotomy site intact, no erythema or swelling, neurovascular status to right hand intact. Assessment Assessment 1. AFIB with RVR; back in SR. 2. NSTEMI: noted with 3VD, S/P PCI/LONI to LAD, RI, and RCA 3. ICM/Acute on chronic systolic CHF: EF at 15-20% compensated 4. HTN; controlled 5. HLP 6. Valvular insufficiency: mod MR and mild to MO TR 7. H/o DVT on Xarelto 8. H/o CVA 9. ALTAGRACIA: Cr at 1.5 post contrast. 10. Reperfusion arrhythmias. afib, aberrancies and AIVR Recommendations 1. Anticipate DC tomorrow. 2. Lifevest a consideration if pt agrees. 3 month intensification per guideline and will consider for AICD afterwards if remains with significant CM 3. Hold ACEi, poor intake continue IVF as tolerated. Continue with metoprolol. 4. 81 mg ECASA, plavix and also with xarelto for stroke prevention and also with hx of VTE. 5. Will consider entresto as outpt. 6. K-dur today,. check Mg. SUAD TALBERT MD 04/21/18 1415: CARDIO Progress Notes Assessment Assessment Patient seen and examined. Agree with MOLD WASHER's assessment and plan. Maintaining sinus rhythm. Acute on chronic systolic heart failure better compensated. s/p PCI/LONI to RCA/LAD/ramus intermedius, chest pain-free. Continue dual antiplatelet therapy. Repeat 2-D echo in 3 months to evaluate the need for AICD implantation. EBONY LEE APRN Apr 21, 2018 13:57 SUAD TALBERT MD Apr 21, 2018 14:15
[2018-04-21] MEDS ORDERED: POTASSIUM CHLORIDE 20 MEQ TABLET.ER. PO ONE (14:15)
[2018-04-21] MEDS: RIVAROXABAN 10 MG TABLET. PO SCH (17:28)
[2018-04-21] MEDS: ATORVASTATIN CALCIUM 20 MG TABLET PO SCH (20:56)
[2018-04-22 03:05] VITALS: BP 93/43
[2018-04-22 05:52] LABS: CALCIUM 8.5 mg/dL (8.5-10.1); CREATININE 1.7 mg/dL (0.7-1.3); GFR 39.3; MAGNESIUM 2.6 mg/dL (1.8-2.4); POTASSIUM 3.7 mmol/L (3.5-5.1)
[2018-04-22 07:00] VITALS: BP 106/64
[2018-04-22] MEDS: IV 1/2 NORMAL SALINE 1,000 ML IV SCH (07:38)
[2018-04-22] MEDS ORDERED: ASPI-612 PO (08:14)
[2018-04-22] MEDS ORDERED: CLOP75TA PO (08:14)
[2018-04-22] MEDS: CLOPIDOGREL BISULFATE 75 MG TABLET PO SCH (08:16)
[2018-04-22] MEDS: ASPIRIN ENTERIC COATED 81 MG TABLET.DR. PO SCH (08:16)
[2018-04-22] MEDS: RIVAROXABAN 10 MG TABLET. PO SCH (08:16)
--- NOTE | 2018-04-22 08:16 | DISCH ---
DISCHARGE WITH HOME HEALTH DISCHARGE INFORMATION: Final Diagnosis: NSTEMI Afib w/ RVR Severe CAD Ischemic cardiomyopathy Condition on Discharge: Stable CODE STATUS: Code Status: Full HOME HEALTH: Face to Face: I certify this patient is under my care and that I, or a nurse practitioner or physician's cafeteria assistant working with me, had a face to face encounter that meets the physician face to face encounter requirements with this patient on []. Physical Therapy For: Evalulation/Treatment Occupational Therapy For: Evaluation/Treatment CERTIFICATION STATEMENT: Certification Statement: Certification Statement: Based on the above finding, I certify that this patient is confined to the home and needs intermittent care home care, physical therapy and/or speech therapy, or continues to need occupational therapy.~ This patient is under my care, and I have initiated the establishment of the plan of care.~ This patient will be followed by myself or a community physician who will periodically review the plan of care. Home Meds Reported Medications Hydrochlorothiazide (HYDROCHLOROTHIAZIDE TABLET) 50 Mg Tablet, 25 MG PO DAILY for DIURETIC, TAB 0 Refills 04/20/18 Atorvastatin Calcium (ATORVASTATIN CALCIUM) 20 Mg Tablet, 1 TAB PO DAILY for high cholesterol , #30 TAB 5 Refills 04/20/18 Amlodipine Besylate (AMLODIPINE BESYLATE) 5 Mg Tablet, 5 MG PO DAILY for blood pressure , TAB 04/20/18 Rivaroxaban (XARELTO) 20 Mg Tablet, 20 MG PO HS for blood thinner , TAB 10/13/17 Citalopram Hydrobromide (CITALOPRAM HBR) 10 Mg Tablet, 1 TAB PO DAILY, #30 TAB 3 Refills 10/13/17 GEMMA SHARMA MD Apr 22, 2018 08:16
[2018-04-22] MEDS: METOPROLOL TART IMMED RELEASE 25 MG TABLET. PO SCH ×2 (08:21→20:31)
[2018-04-22] MEDS ORDERED: IV NORMAL SALINE 250ML 250 ML IV ONE (08:30)
--- NOTE | 2018-04-22 08:41 | PDOC ---
SUBJECTIVE Subjective Doing ok this AM. Denies CP, SOB OBJECTIVE Objective Reviewed. Vital Signs Vital Signs Date Time Temp Pulse Resp B/P (MAP) Pulse Ox O2 Delivery O2 Flow Rate FiO2 04/22/18 08:21 83 106/64 04/22/18 07:00 98.3 75 18 106/64 (78) 96 Nasal Cannula 1.5 98.3 04/22/18 03:05 98.1 82 17 93/43 (60) 94 Nasal Cannula 1.5 98.1 04/21/18 23:41 98.3 75 17 112/67 (82) 91 Nasal Cannula 1.5 98.3 04/21/18 20:57 78 106/57 04/21/18 20:00 Nasal Cannula 1.5 04/21/18 19:45 98.3 78 18 106/57 (73) 93 Nasal Cannula 1.5 98.3 04/21/18 15:00 97.4 67 20 88/52 (64) 92 Nasal Cannula 3.0 97.4 04/21/18 11:00 98.0 71 20 92/63 (73) 92 Nasal Cannula 3.0 98.0 04/21/18 09:53 80 92 Nasal Cannula 4.0 I & O Intake and Output 04/22/18 07:00 Intake Total 2251 ml Output Total 650 ml Balance 1601 ml Intake Oral 650 ml IV Total 1601 ml Output Urine Total 650 ml PHYSICAL EXAM Physical Exam Alert, oriented, no acute distress EOMI, sclera non-icteric Neck supple Regular rate, rhythm Crackles in bases bilaterally, improved from yesterday No edema, cyanosis. Normal capillary refill. ASSESSMENT/PLAN Assessment/Plan NSTEMI Severe 3 vessel CAD s/p stent x 3 in RCA, LAD, ramus intermedius Severe ischemic heart failure with decreased EF 15-20% Acute kidney injury, Cr 1.7 A. 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 Home Amlodipine/HCTZ held. Repeat BMP this afternoon to monitor Cr Will need HH at dc when able DC later today possible vs more likely tomorrow pending Cr improvement, BP stability COMMENT Lab Laboratory Tests Test 04/22/18 04:30 Sodium Level 139 mmol/L (136-145) Potassium Level 3.7 mmol/L (3.5-5.1) Chloride Level 103 mmol/L (98-107) Carbon Dioxide Level 23 mmol/L (21-32) Anion Gap 13 (6-14) Blood Urea Nitrogen 48 mg/dL (8-26) Creatinine 1.7 mg/dL (0.7-1.3) Estimated GFR (Cockcroft-Gault) 39.3 Glucose Level 85 mg/dL (70-99) Calcium Level 8.5 mg/dL (8.5-10.1) Magnesium Level 2.6 mg/dL (1.8-2.4) GEMMA SHARMA MD Apr 22, 2018 08:41
--- NOTE | 2018-04-22 08:43 | RAD ---
Portable chest, 04/22/2018: HISTORY: Congestive heart failure Comparison is made to a study from 04/19/2018. A right Port-A-Cath extends to the level the atrial caval junction. The heart is mildly enlarged. The pulmonary vascularity is prominent. Basilar pulmonary opacities have worsened with loss of definition of the left hemidiaphragm. The appearance suggests basilar infiltrates, although there may be a component of pleural fluid. IMPRESSION: Increasing mild bibasilar opacities likely due to congestive heart failure. Electronically signed by: Ivan Welch MD (04/22/2018 8:41 AM) [facility]
[2018-04-22 11:00] VITALS: BP 111/70
[2018-04-22] MEDS ORDERED: FUROSEMIDE 20 MG/2 ML VIAL. IVP ONE (12:00)
--- NOTE | 2018-04-22 12:37 | PDOC ---
EBONY LEE STRATEGIC SOURCING MANAGER 04/22/18 1237: CARDIO Progress Notes Date and Time Date of Service 04/22/2018 Time of Evaluation 1130 Subjective Subjective: No Chest Pain, No shortness of breath, No Palpitations, Other ( Positive for orthopnea) Vitals Vitals Vital Signs Date Time Temp Pulse Resp B/P (MAP) Pulse Ox O2 Delivery O2 Flow Rate FiO2 04/22/18 11:00 98.0 76 18 111/70 (84) 93 Nasal Cannula 1.5 98.0 Weight Weight [ ] Input and Output Intake and Output Intake and Output 04/22/18 07:00 Intake Total 2251 ml Output Total 650 ml Balance 1601 ml Intake Oral 650 ml IV Total 1601 ml Output Urine Total 650 ml Laboratory Labs Laboratory Tests Test 04/22/18 04:30 Sodium Level 139 mmol/L (136-145) Potassium Level 3.7 mmol/L (3.5-5.1) Chloride Level 103 mmol/L (98-107) Carbon Dioxide Level 23 mmol/L (21-32) Anion Gap 13 (6-14) Blood Urea Nitrogen 48 mg/dL (8-26) Creatinine 1.7 mg/dL (0.7-1.3) Estimated GFR (Cockcroft-Gault) 39.3 Glucose Level 85 mg/dL (70-99) Calcium Level 8.5 mg/dL (8.5-10.1) Magnesium Level 2.6 mg/dL (1.8-2.4) Microbiology Micro Microbiology 04/19/18 Blood Culture - Preliminary, Resulted NO GROWTH AFTER 2 DAYS Physical Exam HEENT: Neck Supple W Full Motion Chest: Symmetric LUNGS: Other (basilar crackles) Heart: S1S2, RRR (SR) Abdomen: Soft N/T Extremities: No Calf Tenderness, Other (1+) Neurology: alert, oriented, follow commands Assessment Assessment 1. AFIB with RVR; back in SR. 2. NSTEMI: noted with 3VD, S/P PCI/LONI to LAD, RI, and RCA 3. ICM/Acute on chronic systolic CHF: EF at 15-20% compensated 4. HTN; controlled 5. HLP 6. Valvular insufficiency: mod MR and mild to Mod TR 7. H/o DVT on Xarelto 8. H/o CVA 9. ALTAGRACIA: Cr at 1.5 post contrast. 10. Reperfusion arrhythmias. aberrancies and AIVR, none significant overnight Recommendations 1. Arrange for lifevest. 3 month intensification per guideline and will consider for AICD afterwards if remains with significant CM 2. Hold ACEi for now. received 24 hr low maintenance fluids due to poor PO intake and increased Cr post cath and small bolus this AM was also given. Pt currently prerenal with CHF. Lasix low dose for now with marginal BP, may repeat this afternoon pending UOP. If UOP remains low then will consider inotrope support and consult nephrology. 3. 81 mg ECASA, plavix, xarelt. 4. Will consider entresto as outpt. 5. EKG today, note QTc and will consider amiodarone for rhythm maintenance. SUAD TALBERT MD 04/22/18 4707: CARDIO Progress Notes Assessment Assessment Patient seen and examined. Agree with WELDING MACHINE OPERATOR GAS's assessment and plan. CAD s/p multivessel PCI/stents placement, clinically stable. Continue dual antiplatelet therapy. Acute on chronic systolic heart failure slightly decompensated clinically and on chest x-ray Agree with trying intravenous Lasix and if this does not result inadequate diuresis, we will consider initiation of inotropes He is presently back in sinus rhythm. Start amiodarone for rhythm maintenance. Agree with Lifevest for now and repeat 2-D echo in 3 months. EBONY LEE APRN Apr 22, 2018 12:37 SUAD TALBERT MD Apr 22, 2018 16:54
--- NOTE | 2018-04-22 13:44 | EKG ---
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
[2018-04-22 14:26] LABS: CALCIUM 8.5 mg/dL (8.5-10.1); CREATININE 1.8 mg/dL (0.7-1.3); GFR 36.8; POTASSIUM 3.5 mmol/L (3.5-5.1)
[2018-04-22 15:10] VITALS: BP 113/73
--- NOTE | 2018-04-22 15:59 | NUR ---
SS following up with discharge planning. PT evaluated pt and recommended home with home healthcare. [facility] hr representative, Alexa, met with pt to discuss home healthcare. Pt agreeable to home healthcare with [facility], ; fax [phone], at discharge. SS will await discharge orders for home healthcare and will proceed accordingly.
[2018-04-22] MEDS: AMIODARONE HCL 200 MG TABLET. PO SCH (16:36)
[2018-04-22] MEDS: ANTI-COAG MONITOR BY PHARMACY. MC PRN (17:26)
[2018-04-22 19:14] VITALS: BP 115/68
[2018-04-22 19:14] LABS: BILIRUBIN,URINE NEGATIVE (NEG); CLARITY,URINE CLEAR; COLOR,URINE YELLOW; NITRITE,URINE NEGATIVE (NEG); PROTEIN,URINE NEGATIVE (NEG-TRACE); UROBILINOGEN,URINE 0.2 mg/dL (0.2 mg/dL)
[2018-04-22 19:24] LABS: BACTERIA,URINE 0 /HPF (0-FEW); HYALINE CASTS, URINE OCCASIONAL /HPF; RBC,URINE 0 /HPF (0-2); SQUAMOUS EPITHELIAL CELL,UR OCC /LPF
[2018-04-22] MEDS: ATORVASTATIN CALCIUM 20 MG TABLET PO SCH (20:31)
[2018-04-22 22:12] VITALS: BP 103/62
[2018-04-23 03:21] VITALS: BP 114/70
[2018-04-23 04:22] LABS: CALCIUM 8.5 mg/dL (8.5-10.1); CREATININE 1.4 mg/dL (0.7-1.3); GFR 49.1; POTASSIUM 3.7 mmol/L (3.5-5.1)
[2018-04-23 07:00] VITALS: BP 118/64
[2018-04-23] MEDS ORDERED: FUROSEMIDE 20 MG/2 ML VIAL. IVP ONE (07:15)
[2018-04-23] MEDS: CLOPIDOGREL BISULFATE 75 MG TABLET PO SCH (08:15)
[2018-04-23] MEDS: ASPIRIN ENTERIC COATED 81 MG TABLET.DR. PO SCH (08:16)
[2018-04-23] MEDS: AMIODARONE HCL 200 MG TABLET. PO SCH (08:54)
[2018-04-23] MEDS: METOPROLOL TART IMMED RELEASE 25 MG TABLET. PO SCH (08:54)
[2018-04-23] MEDS ORDERED: AMIO200T4 PO (09:21)
--- NOTE | 2018-04-23 09:24 | PDOC3 ---
Discharge Summary Date of Admission: Apr 20, 2018 Date of Discharge: Apr 23, 2018 Follow-Up: Other ([address] Godoy or Dr. Jolly) Admitting Diagnosis comment: A. 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 Meza is a 77 year old with a past medical history of A. fib, history of CVA, history of DVT on long-term anticoagulation, hypertension, history of RADIUS CORNER MACHINE OPERATOR lymphoma, hyperlipidemia, obesity, who presented to the emergency room with concerns of productive cough with yellow sputum, fatigue, malaise, subjective fever and some shortness of breath that started the day prior to admission. Of note he was seen in the office on 04/17/18 and was feeling well that time. He denied any chest pain, lightheadedness, dizziness, nausea, vomiting, abdominal pain. Chest x-ray was remarkable for possible interstitial fluid but no obvious consolidation. Labs are remarkable for mild leukocytosis with left shift, BNP of 8004, midly elevated pro-calcitonin, elevated troponin at 0.39 initially which then eventually peaked at 3.8 the next morning. No significant ischemic changes were seen on EKG though he was found to be in A fib with RVR which converted to NSR with diltiazem drip. Pt was started on a heparin drip and taken to cath for NSTEMI. Cath showed severe 3 vessel disease and stents were placed in the RCA, LAD and RI. Echo was significant for EF 15-20%, which was changed from normal EF in 2018. He was started on ASA 81mg and Plavix for stents. Xarelto was resumed for Afib and hx of recurrent DVT. The risk of bleeding was discussed with the patient and he was encouraged to seek medical attention if he has any signs of bleeding. During admission, he had moderate ALTAGRACIA with Cr peak at 1.8 which improved to 1.4 with gentle diuresis for fluid overload. Cardiology arranged for him to have a lifevest and he will repeat Echo in 3 months to evaluate EF and if AICD would be necessary in the future. New medications include: metoprolol 50mg daily, Lisinopril 2.5mg daily, Lasix 20mg daily, KCl 10 meq daily, Amiodarone 200mg daily, Plavix 75mg daily and ASA 81mg daily. His home atorvastatin dose was increased from 20mg to 40mg. His home HCTZ and amlodipine were discontinued. He was instructed in fluid restriction and checking daily weights. He will follow up with Dr. Godoy or Dr. Jolly in [address] Botello in 4 weeks. BMP will be obtained at follow up. CONDITION AT DISCHARGE: Improved, Stable Discharge Medications Current Medications Sodium Chloride (Normal Saline Flush) 10 ml QSHIFT PRN IV AFTER MEDS AND BLOOD DRAWS; Start 04/19/18 at 19:45 Sodium Chloride 1,000 ml @ 2,700 mls/hr Q23M IV Last administered on 04/19/18at 19:55; Start 04/19/18 at 20:00; Stop 04/19/18 at 21:00; Status DC Ceftriaxone Sodium (Rocephin) 1 gm 1X ONCE IVP Last administered on 04/19/18at 20:05; Start 04/19/18 at 20:00; Stop 04/19/18 at 20:01; Status DC Azithromycin 250 ml @ 250 mls/hr 1X ONCE IV Last administered on 04/19/18at 20: 52; Start 04/19/18 at 21:00; Stop 04/19/18 at 21:59; Status DC Aspirin (Children'S Aspirin) 162 mg 1X ONCE PO Last administered on 04/19/18at 20:50; Start 04/19/18 at 21:00; Stop 04/19/18 at 21:01; Status DC Diltiazem HCl (Cardizem Iv Push) 10 mg 1X ONCE IVP Last administered on at 21:02; Start 04/19/18 at 21:00; Stop 04/19/18 at 21:01; Status DC Diltiazem HCl 125 mg/Dextrose 125 ml @ 5 mls/hr CONT PRN IV SEE I/O RECORD Last administered on 04/19/18at 20:53; Start 04/19/18 at 21:00; Stop 04/20/18 at 09: 33; Status DC Atorvastatin Calcium (Lipitor) 20 mg QHS PO Last administered on 04/20/18at 21:17 ; Start 04/20/18 at 21:00; Stop 04/21/18 at 13:57; Status DC Citalopram Hydrobromide (CeleXA) 10 mg DAILY PO ; Start 04/20/18 at 09:00; Stop 04/20/18 at 09:21; Status DC Hydrochlorothiazide (Hydrodiuril) 25 mg DAILY PO ; Start 04/20/18 at 09:00; Stop 04/20/18 at 09:21; Status DC Non-Formulary Medication (Rivaroxaban (Xarelto)) 20 mg HS PO ; Start 04/20/18 at 21:00; Stop 04/20/18 at 21:00; Status DC Heparin Sodium/ Dextrose 500 ml @ 20 mls/hr CONT PRN IV SEE I/O RECORD Last administered on 04/20/18at 08:38; Start 04/20/18 at 08:00; Stop 04/20/18 at 17:56; Status DC Heparin Sodium (Porcine) (Heparin Sodium) 2,300 unit PRN Q6HRS PRN IV FOR UFH LEVEL LESS THAN 0.2; Start 04/20/18 at 08:00; Stop 04/21/18 at 16:10; Status DC Info (Anti-Coagulation Monitoring By Pharmacy) 1 each PRN DAILY PRN MC SEE COMMENTS; Start 04/20/18 at 08:30; Stop 04/21/18 at 16:10; Status DC Potassium Chloride (Klor-Con) 20 meq 1X ONCE PO Last administered on 04/20/18at 09:54; Start 04/20/18 at 09:00; Stop 04/20/18 at 09:01; Status DC Furosemide (Lasix) 40 mg 1X ONCE IVP Last administered on 04/20/18at 09:55; Start 04/20/18 at 09:15; Stop 04/20/18 at 09:20; Status DC Lorazepam (Ativan) 1 mg PRN Q6HRS PRN IV ANXIETY / AGITATION; Start 04/20/18 at 09:15 Metoprolol Tartrate (Lopressor) 50 mg BID PO Last administered on 04/21/18at 20: 57; Start 04/20/18 at 10:00; Stop 04/22/18 at 08:12; Status DC Aspirin (Ecotrin) 81 mg DAILYWBKFT PO Last administered on 04/23/18at 08:16; Start 04/20/18 at 10:00 Magnesium Sulfate 50 ml @ 25 mls/hr 1X ONCE IV Last administered on 04/20/18at 09:56; Start 04/20/18 at 09:30; Stop 04/20/18 at 11:29; Status DC Lidocaine HCl (Xylocaine-Mpf 1% 2ml Vial) 2 ml STK-MED ONCE .ROUTE ; Start at 13:38; Stop 04/20/18 at 13:39; Status DC Heparin Sodium/ Sodium Chloride 500 ml @ As Directed STK-MED ONCE .ROUTE ; Start 04/20/18 at 13:38; Stop 04/20/18 at 13:39; Status DC Iodixanol (Visipaque 320) 100 ml STK-MED ONCE .ROUTE ; Start 04/20/18 at 13:41; Stop 04/20/18 at 13:42; Status DC Fentanyl Citrate (Fentanyl 2ml Vial) 100 mcg STK-MED ONCE .ROUTE ; Start at 14:22; Stop 04/20/18 at 14:23; Status DC Midazolam HCl (Versed) 2 mg STK-MED ONCE .ROUTE ; Start 04/20/18 at 14:22; Stop 04/20/18 at 14:23; Status DC Heparin Sodium (Porcine) (Heparin Sodium) 10,000 unit STK-MED ONCE .ROUTE ; Start 04/20/18 at 14:22; Stop 04/20/18 at 14:23; Status DC Verapamil HCl (Verapamil) 5 mg STK-MED ONCE .ROUTE ; Start 04/20/18 at 14:22; Stop 04/20/18 at 14:23; Status DC Nitroglycerin (Nitroglycerin) 200 mcg STK-MED ONCE .ROUTE ; Start 04/20/18 at 14: 23; Stop 04/20/18 at 14:24; Status DC Bivalirudin (Angiomax) 250 mg STK-MED ONCE IV ; Start 04/20/18 at 14:42; Stop 04/20/18 at 14:43; Status DC Iodixanol (Visipaque 320) 100 ml STK-MED ONCE .ROUTE ; Start 04/20/18 at 14:48; Stop 04/20/18 at 14:49; Status DC Nitroglycerin (Nitroglycerin) 200 mcg 1X ONCE IART Last administered on 15:46; Start 04/20/18 at 15:15; Stop 04/20/18 at 15:16; Status DC Verapamil HCl (Verapamil) 2.5 mg 1X ONCE IART Last administered on 04/20/18 15 :49; Start 04/20/18 at 15:15; Stop 04/20/18 at 15:16; Status DC Heparin Sodium (Porcine) (Heparin Sodium) 2,500 unit 1X ONCE IART Last administered on 04/20/18 15:49; Start 04/20/18 at 15:15; Stop 04/20/18 at 15:16; Status DC Heparin Sodium/ Sodium Chloride (HEPARIN for ARTERIAL LINE FLUSH) 1,000 unit 1X ONCE IART ; Start 04/20/18 at 15:15; Stop 04/20/18 at 15:16; Status DC Midazolam HCl (Versed) 1 mg 1X ONCE IV Last administered on 04/20/18 15:47; Start 04/20/18 at 15:15; Stop 04/20/18 at 15:16; Status DC Fentanyl Citrate (Fentanyl 2ml Vial) 50 mcg 1X ONCE IV Last administered on 15:47; Start 04/20/18 at 15:15; Stop 04/20/18 at 15:16; Status DC Iodixanol (Visipaque 320) 100 ml 1X ONCE IART Last administered on 04/20/18 15 :46; Start 04/20/18 at 15:15; Stop 04/20/18 at 15:16; Status DC Bivalirudin (Angiomax) 250 mg 1X ONCE IV Last administered on 04/20/18 15:47; Start 04/20/18 at 15:15; Stop 04/20/18 at 15:16; Status DC Lidocaine HCl (Xylocaine-Mpf 1% 2ml Vial) 1 ml 1X ONCE INJ Last administered on 04/20/18 15:48; Start 04/20/18 at 15:15; Stop 04/20/18 at 15:16; Status DC Info (CONTRAST GIVEN -- Rx MONITORING) 1 each PRN DAILY PRN MC SEE COMMENTS; Start 04/20/18 at 15:15; Stop 04/22/18 at 15:14; Status DC Iodixanol (Visipaque 320) 100 ml STK-MED ONCE .ROUTE ; Start 04/20/18 at 15:24; Stop 04/20/18 at 15:25; Status DC Nitroglycerin (Nitroglycerin) 200 mcg 1X ONCE ICAR Last administered on at 15:46; Start 04/20/18 at 15:30; Stop 04/20/18 at 15:36; Status DC Clopidogrel Bisulfate (Plavix) 600 mg 1X ONCE PO Last administered on at 15:46; Start 04/20/18 at 15:30; Stop 04/20/18 at 15:36; Status DC Sodium Chloride 1,000 ml @ 75 mls/hr [id number] IV Last administered on 04/21/18at 17:28; Start 04/20/18 at 15:38; Stop 04/22/18 at 12:27; Status DC Aspirin (Ecotrin) 81 mg DAILYWBKFT PO ; Start 04/21/18 at 08:00; Stop 04/21/18 at 08:00; Status DC Clopidogrel Bisulfate (Plavix) 75 mg DAILYWBKFT PO Last administered on at 08:15; Start 04/21/18 at 08:00 Lisinopril (Prinivil) 5 mg DAILY PO Last administered on 04/21/18at 08:24; Start 04/21/18 at 09:00; Stop 04/21/18 at 13:50; Status DC Acetaminophen (Tylenol) 650 mg PRN Q6HRS PRN PO MILD PAIN / TEMP; Start at 15:45 Nitroglycerin (Nitrostat) 0.4 mg PRN Q5MIN PRN SL CHEST PAIN; Start 04/20/18 at 15:45 Nitroglycerin (Nitroglycerin) 200 mcg STK-MED ONCE .ROUTE ; Start 04/20/18 at 16: 28; Stop 04/20/18 at 16:29; Status DC Ondansetron HCl (Zofran) 4 mg PRN Q6HRS PRN IV NAUSEA/VOMITING Last administered on 04/20/18at 16:59; Start 04/20/18 at 16:45 Furosemide (Lasix) 40 mg 1X ONCE PO Last administered on 04/21/18 10:37; Start 04/21/18 at 09:30; Stop 04/21/18 at 09:31; Status DC Atorvastatin Calcium (Lipitor) 40 mg QHS PO Last administered on 04/22/18 20:31 ; Start 04/21/18 at 21:00 Potassium Chloride (Klor-Con) 20 meq 1X ONCE PO Last administered on 04/21/18 15:00; Start 04/21/18 at 14:15; Stop 04/21/18 at 14:16; Status DC Rivaroxaban (Xarelto) 20 mg DAILYWSUP PO Last administered on 04/22/18 08:16; Start 04/21/18 at 17:00 Info (Anti-Coagulation Monitoring By Pharmacy) 1 each PRN DAILY PRN MC SEE COMMENTS Last administered on 04/22/18 17:26; Start 04/21/18 at 17:00 Metoprolol Tartrate (Lopressor) 25 mg BID PO Last administered on 04/23/18 08: 54; Start 04/22/18 at 09:00 Sodium Chloride 250 ml @ 250 mls/hr 1X ONCE IV Last administered on 04/22/18 08:18; Start 04/22/18 at 08:30; Stop 04/22/18 at 09:29; Status DC Furosemide (Lasix) 20 mg 1X ONCE IVP Last administered on 04/22/18 12:19; Start 04/22/18 at 12:00; Stop 04/22/18 at 12:01; Status DC Amiodarone HCl (Cordarone) 200 mg DAILY PO Last administered on 04/23/18 08:54 ; Start 04/22/18 at 16:00 Furosemide (Lasix) 20 mg 1X ONCE IVP Last administered on 04/23/18 08:16; Start 04/23/18 at 07:15; Stop 04/23/18 at 07:16; Status DC Active Scripts Active Reported Hydrochlorothiazide Tablet (Hydrochlorothiazide) 50 Mg Tablet 25 Mg PO DAILY Atorvastatin Calcium 20 Mg Tablet 1 Tab PO DAILY Amlodipine Besylate 5 Mg Tablet 5 Mg PO DAILY Xarelto (Rivaroxaban) 20 Mg Tablet 20 Mg PO HS Citalopram Hbr (Citalopram Hydrobromide) 10 Mg Tablet 1 Tab PO DAILY Vital Signs Vital Signs Date Time Temp Pulse Resp B/P (MAP) Pulse Ox O2 Delivery O2 Flow Rate FiO2 04/23/18 08:54 96 118/64 04/23/18 07:00 97.9 18 94 Nasal Cannula 2.0 97.9 Labs Laboratory Tests Test 04/22/18 04:30 04/22/18 13:55 04/22/18 16:40 04/23/18 03:45 Sodium Level 139 mmol/L (136-145) 139 mmol/L (136-145) 139 mmol/L (136-145) Potassium Level 3.7 mmol/L (3.5-5.1) 3.5 mmol/L (3.5-5.1) 3.7 mmol/L (3.5-5.1) Chloride Level 103 mmol/L (98-107) 101 mmol/L (98-107) 102 mmol/L (98-107) Carbon Dioxide Level 23 mmol/L (21-32) 26 mmol/L (21-32) 28 mmol/L (21-32) Anion Gap 13 (6-14) 12 (6-14) 9 (6-14) Blood Urea Nitrogen 48 mg/dL (8-26) 50 mg/dL (8-26) 49 mg/dL (8-26) Creatinine 1.7 mg/dL (0.7-1.3) 1.8 mg/dL (0.7-1.3) 1.4 mg/dL (0.7-1.3) Estimated GFR (Cockcroft-Gault) 39.3 36.8 49.1 Glucose Level 85 mg/dL (70-99) 121 mg/dL (70-99) 99 mg/dL (70-99) Calcium Level 8.5 mg/dL (8.5-10.1) 8.5 mg/dL (8.5-10.1) 8.5 mg/dL (8.5-10.1) Magnesium Level 2.6 mg/dL (1.8-2.4) Urine Color Yellow Urine Clarity Clear Urine pH 5.0 Urine Specific [place] 1.015 Urine Protein Negative mg/dL (NEG-TRACE) Urine Glucose (UA) Negative mg/dL (NEG) Urine Ketones (Stick) Negative mg/dL (NEG) Urine Blood Negative (NEG) Urine Nitrite Negative (NEG) Urine Bilirubin Negative (NEG) Urine Urobilinogen Dipstick 0.2 mg/dL (0.2 mg/dL) Urine Leukocyte Esterase Negative (NEG) Urine RBC 0 /HPF (0-2) Urine WBC 1-4 /HPF (0-4) Urine Squamous Epithelial Cells Occ /LPF Urine Bacteria 0 /HPF (0-FEW) Urine Hyaline Casts Occasional /HPF Urine Mucus Mod /LPF Laboratory Tests Test 04/22/18 13:55 04/22/18 16:40 04/23/18 03:45 Sodium Level 139 mmol/L (136-145) 139 mmol/L (136-145) Potassium Level 3.5 mmol/L (3.5-5.1) 3.7 mmol/L (3.5-5.1) Chloride Level 101 mmol/L (98-107) 102 mmol/L (98-107) Carbon Dioxide Level 26 mmol/L (21-32) 28 mmol/L (21-32) Anion Gap 12 (6-14) 9 (6-14) Blood Urea Nitrogen 50 mg/dL (8-26) 49 mg/dL (8-26) Creatinine 1.8 mg/dL (0.7-1.3) 1.4 mg/dL (0.7-1.3) Estimated GFR (Cockcroft-Gault) 36.8 49.1 Glucose Level 121 mg/dL (70-99) 99 mg/dL (70-99) Calcium Level 8.5 mg/dL (8.5-10.1) 8.5 mg/dL (8.5-10.1) Urine Color Yellow Urine Clarity Clear Urine pH 5.0 Urine Specific [place] 1.015 Urine Protein Negative mg/dL (NEG-TRACE) Urine Glucose (UA) Negative mg/dL (NEG) Urine Ketones (Stick) Negative mg/dL (NEG) Urine Blood Negative (NEG) Urine Nitrite Negative (NEG) Urine Bilirubin Negative (NEG) Urine Urobilinogen Dipstick 0.2 mg/dL (0.2 mg/dL) Urine Leukocyte Esterase Negative (NEG) Urine RBC 0 /HPF (0-2) Urine WBC 1-4 /HPF (0-4) Urine Squamous Epithelial Cells Occ /LPF Urine Bacteria 0 /HPF (0-FEW) Urine Hyaline Casts Occasional /HPF Urine Mucus Mod /LPF Allergies Allergies Coded Allergies Type Severity Reaction Last Updated Verified No Known Drug Allergies 09/27/17 No Disposition/Orders: D/C to Home w/ GEMMA PACKER MD Apr 23, 2018 09:24
[2018-04-23] MEDS: ANTI-COAG MONITOR BY PHARMACY. MC PRN (09:28)
[2018-04-23 11:00] VITALS: BP 111/82
--- NOTE | 2018-04-23 12:56 | NUR ---
SS following up with discharge planning. Discharge orders received for home healthcare. Alexa from [facility] phoned and faxed discharge orders to [facility], ; fax [phone]. Pt's RN notified.
[2018-04-23] MEDS ORDERED: POTA10TA12 PO (14:13)
[2018-04-23] MEDS ORDERED: FURO20TA3 PO (14:14)
[2018-04-23] MEDS ORDERED: LISI2.5T PO (14:15)
[2018-04-23] MEDS ORDERED: METO50TA6 PO ×2 (14:28→14:41)
[2018-04-23] MEDS ORDERED: ATOR40TA59 PO (14:30)
[2018-04-23] MEDS ORDERED: METO-269 PO (14:41)
--- NOTE | 2018-04-23 14:49 | PDOC ---
EBONY LEE COMPRESS MACHINE OPERATOR 04/23/18 1449: CARDIO Progress Notes Date and Time Date of Service 04/23/2018 Time of Evaluation 1130 Subjective Subjective: No Chest Pain, No shortness of breath, No Palpitations, Other ( ambuilated in hallway without difficulty) Vitals Vitals Vital Signs Date Time Temp Pulse Resp B/P (MAP) Pulse Ox O2 Delivery O2 Flow Rate FiO2 04/23/18 11:00 97.5 77 18 111/82 (92) 96 Room Air 97.5 04/23/18 07:00 2.0 Weight Weight [ ] Input and Output Intake and Output Intake and Output 04/23/18 07:00 Intake Total 1140 ml Output Total 200 ml Balance 940 ml Intake Oral 1140 ml Output Urine Total 200 ml # Voids 1 Laboratory Labs Laboratory Tests Test 04/22/18 16:40 04/23/18 03:45 Urine Color Yellow Urine Clarity Clear Urine pH 5.0 Urine Specific Rough And Ready 1.015 Urine Protein Negative mg/dL (NEG-TRACE) Urine Glucose (UA) Negative mg/dL (NEG) Urine Ketones (Stick) Negative mg/dL (NEG) Urine Blood Negative (NEG) Urine Nitrite Negative (NEG) Urine Bilirubin Negative (NEG) Urine Urobilinogen Dipstick 0.2 mg/dL (0.2 mg/dL) Urine Leukocyte Esterase Negative (NEG) Urine RBC 0 /HPF (0-2) Urine WBC 1-4 /HPF (0-4) Urine Squamous Epithelial Cells Occ /LPF Urine Bacteria 0 /HPF (0-FEW) Urine Hyaline Casts Occasional /HPF Urine Mucus Mod /LPF Sodium Level 139 mmol/L (136-145) Potassium Level 3.7 mmol/L (3.5-5.1) Chloride Level 102 mmol/L (98-107) Carbon Dioxide Level 28 mmol/L (21-32) Anion Gap 9 (6-14) Blood Urea Nitrogen 49 mg/dL (8-26) Creatinine 1.4 mg/dL (0.7-1.3) Estimated GFR (Cockcroft-Gault) 49.1 Glucose Level 99 mg/dL (70-99) Calcium Level 8.5 mg/dL (8.5-10.1) Microbiology Micro Microbiology 04/19/18 Blood Culture - Preliminary, Resulted NO GROWTH AFTER 3 DAYS Physical Exam HEENT: Neck Supple W Full Motion Chest: Symmetric LUNGS: Clear to Auscultation Heart: S1S2, RRR (SR) Abdomen: Soft N/T Extremities: No Calf Tenderness, Other (1+) Neurology: alert, oriented, follow commands Assessment Assessment 1. AFIB with RVR; maintaining SR 2. NSTEMI: noted with 3VD, S/P PCI/LONI to LAD, RI, and RCA 3. ICM/Acute on chronic systolic CHF: EF at 15-20% compensated 4. HTN; controlled 5. HLP 6. Valvular insufficiency: mod MR and mild to Mod TR 7. H/o DVT on Xarelto 8. H/o CVA 9. ALTAGRACIA: prerenal improved with diurese. 10. Reperfusion arrhythmias. aberrancies and AIVR, none significant overnight Recommendations 1. Arrange for lifevest. 3 month intensification per guideline and will consider for AICD afterwards if remains with significant CM 2. Toprol XL Rx given, continue lipitor. Start on low dose lisinopril (Rx given ). Lasix and low dose Kdur Rx given 3. 81 mg ECASA, plavix (Rx given), xarelto. amiodarone (Rx given) 4. Will consider entresto as outpt. CHF clinic f/u in 1-2 weeks discussed with RN. FR (but emphasized hydration adequacy), daily wt. 5. Follow up with Dr. Talbert in 4 weeks. SUAD TALBERT MD 04/23/182046: CARDIO Progress Notes Assessment Assessment Patient seen and examined. Agree with HOG PUSHER's assessment and plan. Acute on chronic systolic HF better compensated CAD stable Continue Lifevest and repeat echo in 3 mos We will consider initiation of entresto as outpatient Follow up in 2-4 weeks EBONY LEE APRN Apr 23, 2018 14:49 SUAD TALBERT MD Apr 23, 2018 20:47
--- NOTE | 2018-04-23 15:39 | NUR ---
Patient discharged with Life Vest applied, new prescriptions, stent cards and written discharge instructions signed and in chart
[2018-06-26] MEDS ORDERED: SACU1TAB PO (09:35)
[2018-06-26] MEDS ORDERED: METO-247 PO (09:35)
== END 2018-04-23 15:38 | disposition home health service (06) | DRG 246 ==
LOC: ER 18:51 → 2 SOUTH 21:00
PROVIDERS: ADMIT Family Medicine; ATTEND Family Medicine
PROC: 4A023N7 Measurement of Cardiac Sampling and Pressure, Left Heart, Percutaneous Approach (ICD-10-PCS; principal; 2018-04-20)
PROC: 027237Z Dilation of Coronary Artery, Three Arteries with Four or More Drug-eluting Intraluminal Devices, Percutaneous Approach (ICD-10-PCS; 2018-04-20)
PROC: B2111ZZ Fluoroscopy of Multiple Coronary Arteries using Low Osmolar Contrast (ICD-10-PCS; 2018-04-20)
DX: I21.4 Non-ST elevation (NSTEMI) myocardial infarction (principal); I50.43 Acute on chronic combined systolic (congestive) and diastolic (congestive) heart failure; N17.9 Acute kidney failure, unspecified; I25.10 Atherosclerotic heart disease of native coronary artery without angina pectoris; E66.9 Obesity, unspecified; E78.5 Hyperlipidemia, unspecified; E83.42 Hypomagnesemia; E87.6 Hypokalemia; I11.0 Hypertensive heart disease with heart failure; I48.91 Unspecified atrial fibrillation; K21.9 Gastro-esophageal reflux disease without esophagitis; Z95.5 Presence of coronary angioplasty implant and graft; Z85.72 Personal history of non-Hodgkin lymphomas; Z85.841 Personal history of malignant neoplasm of brain; Z86.718 Personal history of other venous thrombosis and embolism; Z86.73 Personal history of transient ischemic attack (TIA), and cerebral infarction without residual deficits; Z87.891 Personal history of nicotine dependence; Z92.21 Personal history of antineoplastic chemotherapy; Z82.49 Family history of ischemic heart disease and other diseases of the circulatory system; Z68.30 Body mass index [BMI] 30.0-30.9, adult
CPT/HCPCS: 36415; 71045; 80048; 80053; 80061; 81001; 83605; 83735; 83880; 84132; 84145; 84443; 84484; 85007; 85025; 85027; 85610; 85730; 87040; 87804; 92928; 93005; 93308; 93320; 93325; 93458; 94618; 96365; 96375; 99152; 99153; C1725; C1769; C1874; C1887; C1892; J0456; J0583; J0696; J1644; J1940; J2250; J2405; J3010; J3475; J3490; J7030; J7050; Q9967; 97110; 97116; 99285-25

== ENCOUNTER → 2018-05-20 | Outpatient (CLI) | payer MEDICARE ==
[2018-04-23 11:00] VITALS: BP 111/82
[~2018-05-20] MED LIST changes: +AMIO200T4 PO; +AMLO5TAB10 PO; +ASPI-612 PO; +ATOR20TA58 PO; +ATOR40TA59 PO; +CLOP75TA PO; +FURO20TA3 PO; +HYDR50TA6 PO; +LISI2.5T PO; +METO-247 PO; +METO-269 PO; +METO50TA6 PO; +POTA10TA12 PO; +SACU1TAB PO
[2018-05-20 13:39] LABS: CALCIUM 9.5 mg/dL (8.5-10.1); CREATININE 1.4 mg/dL (0.7-1.3); GFR 49.1; MAGNESIUM 1.9 mg/dL (1.8-2.4); POTASSIUM 5.1 mmol/L (3.5-5.1)
== END | disposition home or self-care (01) ==
LOC: LAB 13:15
PROVIDERS: ATTEND Nurse Practitioner
DX: I50.22 Chronic systolic (congestive) heart failure (principal)
CPT/HCPCS: 36415; 80048; 83735

== ENCOUNTER → 2018-06-08 | Outpatient (CLI) | payer MEDICARE ==
[2018-06-08 13:02] LABS: CALCIUM 9.1 mg/dL (8.5-10.1); CREATININE 1.5 mg/dL (0.7-1.3); GFR 45.4; POTASSIUM 3.8 mmol/L (3.5-5.1)
== END | disposition home or self-care (01) ==
LOC: LAB 11:51
PROVIDERS: ATTEND Nurse Practitioner
DX: I11.0 Hypertensive heart disease with heart failure (principal); I50.22 Chronic systolic (congestive) heart failure
CPT/HCPCS: 36415; 80048

== ENCOUNTER → 2019-10-19 | Outpatient (CLI) | payer MEDICARE ==
[2018-06-27 11:40] VITALS: BP 124/64
[~2019-10-19] MED LIST changes: -ASPI-612 PO; +ASPI-886 PO
--- NOTE | 2019-10-19 16:24 | CARD ---
MR#: [id number] Date of Study: 10/19/2019 Ordering Physician: SUAD TALBERT, Referring Physician: SUAD TALBERT, Tech: Carmel Fowler APPROVED REPORT EXAM: Two-dimensional and M-mode echocardiogram with Doppler and color Doppler. Other Information Quality : AverageHR: 97bpm INDICATION Cardiac Disease: CAD Surgery/Intervention ICD/Pacemaker: Date: 2018 2D DIMENSIONS RVDd3.3 (2.9-3.5cm)Left Atrium(2D)3.9 (1.6-4.0cm) IVSd1.4 (0.7-1.1cm)Aortic Root(2D)3.5 (2.0-3.7cm) LVDd5.3 (3.9-5.9cm)LVOT Diameter2.2 (1.8-2.4cm) PWd1.0 (0.7-1.1cm)LVDs3.3 (2.5-4.0cm) FS (%) 37.5 %SV90.8 ml LVEF(%)67.1 (>50%) Aortic Valve AoV Peak Mg.198.8cm/sAoV VTI38.1cm AO Peak GR.15.8mmHgLVOT Peak Mg.95.2cm/s LVOT VTI 19.30cmAO Mean GR.10mmHg CHERY (VMAX)1.56em2BTZ (VTI)1.94cm2 Mitral Valve MV E Idluygpa34.8cm/sMV DECEL [id number] MV A Fjcsvtet716.9cm/sMV E Mean Gr.2mmHg MV MJS43raH/A Ratio0.9 MVA (PHT)3.81cm2 TDI E/Lateral E'15.5E/Medial E'14.9 Pulmonary Valve PV Peak Mgxwrerc30.6cm/sPV Peak Grad.4mmHg Tricuspid Valve TR P. Sabhhbdx385wi/sRAP [id number] TR Peak Gr.03vuGdRQYT87ywAm Pulmonary Vein S1 Rteqeedm26.8cm/sD2 Impqayfy01.1cm/s PVa [id number] LEFT VENTRICLE The left ventricle is normal size. There is borderline to mild concentric left ventricular hypertroph y. The left ventricular systolic function is normal and the ejection fraction is within normal range. The Ejection Fraction is 60-65%. Septal motion consistent with pacemaker activation. Transmitral Dop pler flow pattern is Grade I-abnormal relaxation pattern. RIGHT VENTRICLE The right ventricle is mildly dilated. There is normal right ventricular wall thickness. Systolic fun ction is borderline reduced. There is a pacemaker lead in the right ventricle. ATRIA The left atrium size is normal. The right atrium is mildly dilated. The interatrial septum is intact with no evidence for an atrial septal defect or patent foramen ovale as noted on 2-D or Doppler imagi ng. AORTIC VALVE The aortic valve is calcified and displays decreased opening. Doppler and Color Flow revealed trace a ortic regurgitation. There is no significant aortic valvular stenosis. Calculated aortic valve area i s 1.69 cm2 with maximum pressure gradient of 22 mmHg and mean pressure gradient of 14 mmHg. MITRAL VALVE The mitral valve is normal in structure and function. There is no evidence of mitral valve prolapse. There is no mitral valve stenosis. Doppler and Color-flow revealed trace mitral regurgitation. TRICUSPID VALVE The tricuspid valve is normal in structure and function. Doppler and Color Flow revealed trace tricus pid regurgitation with an estimated PAP of 30 mmHg. There is no tricuspid valve stenosis. PULMONIC VALVE The pulmonic valve is not well visualized. Doppler and Color Flow revealed trace pulmonic valvular re gurgitation. GREAT VESSELS The aortic root is normal in size. The IVC is normal in size and collapses >50% with inspiration. PERICARDIAL EFFUSION There is no evidence of significant pericardial effusion. Critical Notification Critical Value: No <Conclusion> The left ventricle is normal size. The left ventricular systolic function is normal and the ejection fraction is within normal range. The Ejection Fraction is 60-65%. Septal motion consistent with pacemaker activation. There is borderline to mild concentric left ventricular hypertrophy. Doppler and Color Flow revealed trace aortic regurgitation. There is no significant aortic valvular stenosis. Calculated aortic valve area is 1.69 cm2 with maximum pressure gradient of 22 mmHg and mean pressure gradient of 14 mmHg. Doppler and Color-flow revealed trace mitral regurgitation. Doppler and Color Flow revealed trace tricuspid regurgitation with an estimated PAP of 30 mmHg. Signed by : Nilson Pascal MD Electronically Approved : 10/19/2019 16:23:48
== END | disposition home or self-care (01) ==
LOC: ECHO 07:53
PROVIDERS: ATTEND Internal Medicine Cardiovascular Disease
DX: I35.1 Nonrheumatic aortic (valve) insufficiency (principal); I25.10 Atherosclerotic heart disease of native coronary artery without angina pectoris; I51.7 Cardiomegaly; Z95.0 Presence of cardiac pacemaker
CPT/HCPCS: 93306

== ENCOUNTER → 2021-04-10 | Outpatient (CLI) | payer MEDICARE ==
[2018-06-27 11:40] VITALS: BP 124/64
[~2021-04-10] MED LIST changes: -AMIO200T4 PO; +AMIO200T53 PO; +AMLO-186 PO; -AMLO5TAB10 PO; -CITA10TA4 PO; +CITA10TA5 PO; +DOXY-181 PO; -DOXY100C14 PO; -HYDR50TA6 PO; +HYDR50TA9 PO; -LISI2.5T PO; +LISI2.5T12 PO; +PERFLUTREN PROTEIN-A MICROSPHR 0.22 MG/ML 3 ML VIAL. IV ONE
--- NOTE | 2021-04-10 17:56 | CARD ---
MR#: [id number] Date of Study: 04/10/2021 Ordering Physician: SUAD TALBERT, Referring Physician: SUAD TALBERT Tech: Melisa Keyes [facility] APPROVED REPORT EXAM: Two-dimensional and M-mode echocardiogram with Doppler and color Doppler. Other Information Quality : Technically LimitedHR: 84bpm Rhythm : NSR INDICATION Aortic Valve Disease RISK FACTORS Hypertension Hyperlipidemia Diabetes 2D DIMENSIONS RVDd3.3 (2.9-3.5cm)Left Atrium(2D)3.8 (1.6-4.0cm) IVSd1.1 (0.7-1.1cm)Aortic Root(2D)3.5 (2.0-3.7cm) LVDd3.7 (3.9-5.9cm)LVOT Diameter2.3 (1.8-2.4cm) PWd1.1 (0.7-1.1cm)LVDs2.1 (2.5-4.0cm) FS (%) 42.4 %SV43.1 ml LVEF(%)74.3 (>50%) Aortic Valve AoV Peak Mg.270.5cm/sAoV VTI63.1cm AO Peak GR.29.3mmHgLVOT Peak Mg.88.8cm/s AO Mean GR.16mmHg Mitral Valve MV E Ogxwtusz034.8cm/sMV DECEL LVLE084yd MV A Zkdpfeia79.3cm/sE/A Ratio1.1 Pulmonary Valve PV Peak Ngxqnndo987.0cm/s Tricuspid Valve TR P. Ncikevvu681wo/sTR Peak Gr.35mmHg LEFT VENTRICLE The left ventricle is normal size. There is borderline concentric left ventricular hypertrophy. The l eft ventricular systolic function is normal. Estimated ejection fraction 60%. There is normal LV seg mental wall motion. Transmitral Doppler flow pattern is Grade II-pseudonormal filling dynamics. RIGHT VENTRICLE The right ventricle is normal size. There is normal right ventricular wall thickness. The right ventr icular systolic function is normal. ATRIA The left atrium is borderline dilated. The right atrium size is normal. The interatrial septum is int act with no evidence for an atrial septal defect or patent foramen ovale as noted on 2-D or Doppler i maging. AORTIC VALVE The aortic valve is calcified and displays decreased opening. Doppler and Color Flow revealed no sign ificant aortic regurgitation. Mild aortic valvular stenosis with mean gradient 16 mm Hg. MITRAL VALVE The mitral valve is normal in structure and function. There is no evidence of mitral valve prolapse. There is no mitral valve stenosis. Doppler and Color-flow revealed mild mitral regurgitation. TRICUSPID VALVE The tricuspid valve is normal in structure and function. Doppler and Color Flow revealed mild tricusp id regurgitation. Estimated PAP 40-45 mmHg. There is no tricuspid valve stenosis. PULMONIC VALVE The pulmonary valve is normal in structure and function. Doppler and Color Flow revealed trace pulmon ic valvular regurgitation. GREAT VESSELS The aortic root is normal in size. The ascending aorta is normal in size. The IVC is normal in size a nd collapses >50% with inspiration. PERICARDIAL EFFUSION There is no evidence of significant pericardial effusion. Critical Notification Critical Value: No <Conclusion> The left ventricular systolic function is normal. Estimated ejection fraction 60%. There is normal LV segmental wall motion. Transmitral Doppler flow pattern is Grade II-pseudonormal filling dynamics. Mild aortic valvular stenosis with mean gradient 16 mm Hg. Mild mitral regurgitation. Mild tricuspid regurgitation. Estimated PAP 40-45 mmHg. There is no evidence of significant pericardial effusion. Signed by : Suad Talbert, Electronically Approved : 04/10/2021 17:56:16
== END ==
LOC: ECHO 12:43
PROVIDERS: ATTEND Internal Medicine Cardiovascular Disease
DX: I08.3 Combined rheumatic disorders of mitral, aortic and tricuspid valves (principal); I25.10 Atherosclerotic heart disease of native coronary artery without angina pectoris; I50.22 Chronic systolic (congestive) heart failure
CPT/HCPCS: C8929; Q9956